=== PATIENT | male | born 1980 | race Hispanic/Latino ===

== ENCOUNTER 2017-12-17 10:07 | Inpatient (IN) | payer OTHER ==
[~2017-12-17] VITALS: Ht 195.6 cm; Wt 145.1 kg
[2017-12-17] MEDS ORDERED: SODIUM CHLORIDE 0.9% 1000ML 1,000 ML IV STA (10:15)
[2017-12-17] MEDS ORDERED: PIPER-TAZ 3.375 GM 50 ML IV STA (10:15)
[2017-12-17] MEDS ORDERED: MORPHINE SULFATE INJ 4 MG/ML INJ IV STA (10:15)
[2017-12-17] MEDS ORDERED: VANCOMYCIN 1GM/NS 250 ML 250 ML IV STA (10:15)
[2017-12-17 10:56] LABS: BASOPHILS % 0.2 % (0.0-1.0); EOSINOPHILS # (AUTO) 0.2 (0.0-0.4); EOSINOPHILS % 1.5 % (0.0-6.0); HEMATOCRIT 41.5 % (38.2-49.6); HEMOGLOBIN 14.7 g/dL (14.0-18.0); LYMPHOCYTES # (AUTO) 2.4 (1.0-3.2); LYMPHOCYTES % 18.6 % (18.0-39.1); MEAN CORPUSCULAR HEMOGLOBIN 28.2 pg (28-32); MEAN CORPUSCULAR HGB CONC 35.4 g/dL (31-35); MEAN CORPUSCULAR VOLUME 79.7 fL (81-99); MONOCYTES % 7.5 % (4.4-11.3); NEUTROPHILS # (AUTO) 9.3 (2.1-6.9); NEUTROPHILS % 71.7 % (38.7-80.0); PLATELET COUNT 368 x10e3/uL (140-360); RED BLOOD COUNT 5.21 x10e6/uL (4.3-5.7); RED CELL DISTRIBUTION WIDTH 11.7 % (11.7-14.4)
[2017-12-17 10:59] LABS: INR 1.07; PROTHROMBIN TIME 13.1 seconds (11.9-14.5)
[2017-12-17 11:00] LABS: PARTIAL THROMBOPLASTIN TIME 38.6 seconds (23.8-35.5)
[2017-12-17 11:08] LABS: ALANINE AMINOTRANSFERASE 28 IU/L (0-55); ALBUMIN 3.3 g/dL (3.5-5.0); ALBUMIN/GLOBULIN RATIO 0.7 (0.8-2.0); ALKALINE PHOSPHATASE 183 IU/L (40-150); ANION GAP 19.7 mmol/L (8-16); BLOOD UREA NITROGEN 11 mg/dL (7-26); BUN/CREATININE RATIO 9 (6-25); CARBON DIOXIDE 23 mmol/L (22-29); CHLORIDE 97 mmol/L (98-107); CREATININE, SERUM 1.21 mg/dL (0.72-1.25); EST GLOMERULAR FILTRATION RATE > 60 ML/MIN (60-); GLUCOSE 382 mg/dL (74-118); POTASSIUM 3.7 mmol/L (3.5-5.1); SODIUM 136 mmol/L (136-145)
--- NOTE | 2017-12-17 11:24 | Diagnostic Imaging Report ---
FOOT LEFT COMPLETE - 3 views HISTORY: Pain COMPARISON: None available. FINDINGS: See impression. IMPRESSION: Nondisplaced intra-articular fracture of the tip of the proximal phalanx of the fifth toe with associated soft tissue swelling. Signed by: Dr. Bart Mccarthy MD on 12/17/2017 11:20 AM
[2017-12-17] MEDS ORDERED: INSULIN REGULAR, HUMAN 100 UNIT/1 ML 3ML VIAL SQ ONE (11:30)
[2017-12-17] MEDS ORDERED: ONDANSETRON HCL INJ 2 MG/ML VIAL IV PRN (11:45)
[2017-12-17] MEDS ORDERED: MORPHINE SULFATE 2 MG/ML SYR IV PRN (11:45)
[2017-12-17] MEDS ORDERED: DEXTROSE 50% SYRINGE 50 ML IV PRN (11:45)
[2017-12-17] MEDS ORDERED: PIPER-TAZ 3.375 GM 50 ML IV SCH (12:00)
[2017-12-17] MEDS ORDERED: ACETAMINOPHEN 325 MG TAB PO PRN (12:30)
[2017-12-17 13:18] VITALS: BP 157/81
[2017-12-17] MEDS: VANCOMYCIN 1GM/NS 250 ML 250 ML IV SCH (13:31)
[2017-12-17] MEDS: SODIUM CHLORIDE 0.9% 1000ML 1,000 ML IV SCH ×2 (13:31→20:30)
[2017-12-17 13:36] VITALS: BP 157/81
[2017-12-17] MEDS: HEPARIN SOD (PORCINE) 5,000 UNIT/ML VIAL SC SCH ×2 (13:45→20:38)
[2017-12-17 15:58] VITALS: BP 173/98
[2017-12-17] MEDS ORDERED: INSULIN REGULAR, HUMAN 100 UNIT/1 ML 3ML VIAL SQ SCH (16:30)
--- NOTE | 2017-12-17 17:19 | History and Physical ---
The patient was admitted through the emergency room. An unfortunate 37-year-old gentleman with a history of poorly fitting shoes, history of injury to the foot on December 06, 2017, on a bag of pesticide fell approximately 2 feet from a tom on to his foot. There has been swelling over the last 5 days. SURGERIES: Cyst on his back. FAMILY HISTORY: Positive for diabetes. He was born in [place]. He has been on a low carbohydrate diet. ALLERGIES: BEE STINGS AND POLLEN. MEDICATIONS: Takes no regular medications. PHYSICAL EXAMINATION GENERAL: A burly white male anxious and in no acute distress. HEENT: Head is normocephalic and atraumatic. Eyes: Extraocular muscles intact. LUNGS: Clear. HEART: Regular rhythm. ABDOMEN: Nontender. EXTREMITIES: There is tenderness at the ball of the left foot. Cellulitis and area of laceration of the foot. IMPRESSION 1. Probable osteomyelitis of the small 5th toe of the left foot. 2. Diabetes mellitus. 3. Cellulitis. PLAN: IV antibiotics. Control diabetes. Surgical opinion. Venous and arterial Doppler. Empiric antibiotics to cover gram-negative and gram-positive anaerobic organisms. Thank you for this kind referral. Job#: [id number] TALAT
[2017-12-17] MEDS ORDERED: CLONIDINE HCL 0.1 MG TAB PO PRN (17:30)
[2017-12-17] MEDS: PIPER-TAZ 3.375 GM 50 ML IV SCH (17:55)
[2017-12-17 20:00] VITALS: BP 169/89
[2017-12-17 20:09] VITALS: BP 161/90
[2017-12-17] MEDS: INSULIN LISPRO 100 UNIT/1 ML 3ML VIAL SQ SCH (20:38)
[2017-12-17] MEDS: INSULIN DETEMIR 100 UNIT/ML PEN SQ SCH (20:39)
--- NOTE | 2017-12-17 20:41 | Consultation ---
DATE OF CONSULTATION: REASON FOR CONSULTATION: This patient has osteomyelitis of the foot, infection of the foot. HISTORY OF PRESENT ILLNESS: This is a very pleasant 37-year-old male. Denies any past medical history. He does have obesity. The patient a week ago or 9 days ago a bag of fertilizer fell to his left foot. He does have some pain, did not make much of it. He continued to work. The patient started to have redness and swelling yesterday, came to emergency room where he was admitted. The patient who is currently laying in bed comfortably, but he said he cannot put any weight on it. Also, with this admission, he was diagnosed with diabetes, which she was not aware of, but he does say there is diabetes in the family. PAST MEDICAL HISTORY: Obesity, now newly diagnosed diabetes. PAST SURGICAL HISTORY: Denies. ALLERGIES: NKA. SOCIAL HISTORY: There is no smoking, drug abuse, alcohol abuse. FAMILY HISTORY: Unremarkable. LAB: White count 13.01, hemoglobin 14.7. His sodium 136, potassium 3.7, creatinine 1.2. AST, ALT within normal limits. Alkaline phosphatase 183. His x-ray of the foot showing nondisplaced intra-articular fracture of the tip of the proximal phalanx of the 5th toe. PHYSICAL EXAMINATION GENERAL: He is currently alert, oriented, does not seem to be in acute distress. VITALS: Stable, currently afebrile. HEENT: Not icteric. Normocephalic. NECK: Supple. No JVD, no carotid bruit, no thyromegaly. CHEST: Clear bilaterally. HEART: S1, S2. No thrills, murmur. ABDOMEN: Soft. No tenderness. Obese. EXTREMITIES: No edema. The left foot there is significant erythema and edema and some ecchymosis. The erythema involving the whole foot. IMPRESSIONS 1. Cellulitis of the foot. Since there is a fractured bone, I am really concerned that it has spread to the bone. So we have to treat as if he has osteomyelitis. Will plan on initial 2 weeks, but we may extend it to 6 weeks. Will get a peripherally inserted central catheter line in him. Will continue with vancomycin and Zosyn for the time being. Discussed with surgery. Will observe for the next day or 2. I have warned the patient he may end up losing his toe. 2. Diabetes, new diagnosis. Will need to stress control. Diet, exercise, and treatment were deferred to Dr. Robbins. 3. May need a magnetic resonance imaging. Will see in the next 24 or 48 hours with bedrest and IV antibiotic. I may get an MRI depending in his clinical progress. Job#: [id number] CQ
--- NOTE | 2017-12-17 21:30 | Consultation ---
DATE OF CONSULTATION: December 17, 2017 CHIEF COMPLAINT: Left toe infection. HISTORY OF PRESENT ILLNESS: The patient is a 37-year-old male with 10-day history of left fifth toe swelling, redness, and tenderness. Patient stated he started with a left fifth toe while walking which had been progressively enlarged and swollen with more redness and pain with some subjective fevers. PAST MEDICAL HISTORY: Positive for new-onset diabetes. PAST SURGICAL HISTORY: Unremarkable. ALLERGIES: HE HAS NO KNOWN DRUG ALLERGIES. SOCIAL HABITS: Denies smoking or alcohol abuse. REVIEW OF SYSTEMS: Negative except for current HPI. PHYSICAL EXAMINATION: VITAL SIGNS: Stable, afebrile. GENERAL: He is awake, alert, in mild discomfort. HEENT: Sclerae anicteric. NECK: Supple. LUNGS: Clear. HEART: Regular rate and rhythm. ABDOMEN: Soft, nontender. EXTREMITIES: Revealed the left fifth toe which is edematous and erythematous with the process extending to the lateral aspect to the left lateral foot and dorsum of the foot. There is evidence of skin breakage on the web site of the fifth toe. Pedal pulse is bounding. LABORATORY DATA: White cell count is 13, hemoglobin of 15. Creatinine of 1.2. Glucose 382. X-ray showed transverse fracture of the proximal phalanx of left fifth toe. ASSESSMENT: Left fifth toe soft tissue infection with underlying open fracture of the proximal phalanx. PLAN: IV antibiotics and left leg elevation. Will follow patient with you. Thank you. Job#: [id number]
--- NOTE | 2017-12-17 21:40 | Consultation ---
DATE OF CONSULTATION: December 17, 2017 ENDOCRINE CONSULTATION Patient of Dr. Robbins. Thank you very much for referring this patient. HISTORY: This is 37-year-old gentleman who is referred to me for evaluation of new-onset diabetes mellitus. Patient says that he had a checkup about 3 to 4 years back and he was not a diabetic at this time. This time he comes to the hospital with cellulitis of the left foot, and his blood sugar was found to be 350 and his hemoglobin A1c is significantly elevated at 13.0. On direct questioning, he does complain of polyuria, polydipsia, and leg cramps. His anion gap at the time of admission was 19.7. Patient says that he stepped on something and developed cellulitis of the left foot for the last week and a half, and he dropped something on his foot. Patient has very strong family history of diabetes. PHYSICAL EXAMINATION: GENERAL: Today, the patient is alert, awake, little bit apprehensive. He is moderately overweight. VITAL SIGNS: His heart rate is around 78, blood pressure 140/80 mmHg. HEENT: Essentially unremarkable. Thyroid is palpable. Clinically, he is near euthyroid. CHEST: Bilateral vesicular breathing. No rales heard. CARDIAC: Both 1st and 2nd heart sounds. There is no 3rd or 4th heart sound. Ejection systolic murmur, grade 2/6. EXTREMITIES: Patient has evidence of diabetic sensory neuropathy in both lower extremities. He has cellulitis of the left foot and also fracture of the left fifth toe. PLAN: At this time is to monitor his thyroid function test, do a blood sugar monitoring, and start him on the Levemir and the Humalog insulin. Patient needs extensive diabetic and dietary education and the foot care. Thanks for referring this patient. I will be following this patient with you. Job#: [id number]
[2017-12-17] MEDS: LOSARTAN POTASSIUM 25 MG TAB PO SCH (21:55)
[2017-12-18] VITALS: BP 159/85
[2017-12-18] MEDS: PIPER-TAZ 3.375 GM 50 ML IV SCH ×4 (00:25→18:00)
[2017-12-18] MEDS: VANCOMYCIN 1GM/NS 250 ML 250 ML IV SCH ×2 (01:00→12:58)
[2017-12-18 04:00] VITALS: BP 161/96
[2017-12-18 06:55] LABS: CHOL/HDL RATIO 4.4 (3.9-4.7)
[2017-12-18 07:16] LABS: FREE T4 (FREE THYROXINE) 1.23 ng/dL (0.9-1.8); THYROID STIMULATING HORMONE 2.784 uIU/mL (0.350-4.940)
[2017-12-18 07:41] VITALS: BP 154/90
[2017-12-18 08:55] VITALS: BP 154/90
[2017-12-18] MEDS: INSULIN LISPRO 100 UNIT/1 ML 3ML VIAL SQ SCH ×7 (08:55→21:00)
[2017-12-18] MEDS: CHLORTHALIDONE 25 MG TAB PO SCH (08:55)
[2017-12-18] MEDS: HEPARIN SOD (PORCINE) 5,000 UNIT/ML VIAL SC SCH ×2 (08:55→21:00)
[2017-12-18] MEDS: LOSARTAN POTASSIUM 25 MG TAB PO SCH ×2 (08:55→21:00)
[2017-12-18] MEDS ORDERED: MORPHINE SULFATE INJ 4 MG/ML INJ IV PRN (13:15)
[2017-12-18 16:37] VITALS: BP 149/85
[2017-12-18] MEDS ORDERED: VANCOMYCIN HCL 1.5 GM in SODIUM CHLORIDE 0.9% 250ML 300 ML IV SCH ×2 (17:00→21:00)
[2017-12-18] MEDS: SODIUM CHLORIDE 0.9% 1000ML 1,000 ML IV SCH (18:09)
[2017-12-18] MEDS: VANCOMYCIN HCL 1.5 GM in SODIUM CHLORIDE 0.9% 250ML 300 ML IV SCH (18:48)
[2017-12-18 20:00] VITALS: BP 142/85
[2017-12-18] MEDS: INSULIN DETEMIR 100 UNIT/ML PEN SQ SCH (21:00)
[2017-12-19] VITALS (7 sets, daily range): BP systolic 130–151; BP diastolic 78–92
[2017-12-19] MEDS: SODIUM CHLORIDE 0.9% 1000ML 1,000 ML IV SCH ×3 (02:30→22:30)
[2017-12-19] MEDS: PIPER-TAZ 3.375 GM 50 ML IV SCH ×2 (05:33)
[2017-12-19 05:57] LABS: BASOPHILS # (AUTO) 0.1 (0.0-0.1); BASOPHILS % 0.4 % (0.0-1.0); EOSINOPHILS # (AUTO) 0.3 (0.0-0.4); EOSINOPHILS % 2.1 % (0.0-6.0); HEMATOCRIT 37.8 % (38.2-49.6); LYMPHOCYTES # (AUTO) 2.4 (1.0-3.2); LYMPHOCYTES % 18.1 % (18.0-39.1); MEAN CORPUSCULAR HEMOGLOBIN 27.8 pg (28-32); MEAN CORPUSCULAR HGB CONC 34.4 g/dL (31-35); MEAN CORPUSCULAR VOLUME 80.8 fL (81-99); MONOCYTES # (AUTO) 1.2 (0.2-0.8); MONOCYTES % 8.8 % (4.4-11.3); NEUTROPHILS # (AUTO) 9.2 (2.1-6.9); NEUTROPHILS % 70.1 % (38.7-80.0); PLATELET COUNT 351 x10e3/uL (140-360); RED BLOOD COUNT 4.68 x10e6/uL (4.3-5.7); RED CELL DISTRIBUTION WIDTH 11.6 % (11.7-14.4)
[2017-12-19] MEDS: VANCOMYCIN HCL 1.5 GM in SODIUM CHLORIDE 0.9% 250ML 300 ML IV SCH (06:00)
[2017-12-19 06:50] LABS: BLOOD UREA NITROGEN 9 mg/dL (7-26); BUN/CREATININE RATIO 11 (6-25); CALCIUM 9.7 mg/dL (8.4-10.2); CARBON DIOXIDE 26 mmol/L (22-29); CHLORIDE 100 mmol/L (98-107); CREATININE, SERUM 0.85 mg/dL (0.72-1.25); EST GLOMERULAR FILTRATION RATE > 60 ML/MIN (60-); GLUCOSE 113 mg/dL (74-118); SODIUM 137 mmol/L (136-145)
[2017-12-19] MEDS: INSULIN LISPRO 100 UNIT/1 ML 3ML VIAL SQ SCH ×7 (07:30→21:00)
[2017-12-19] MEDS: LOSARTAN POTASSIUM 25 MG TAB PO SCH ×2 (08:57→21:00)
[2017-12-19] MEDS: CHLORTHALIDONE 25 MG TAB PO SCH (08:57)
[2017-12-19] MEDS: HEPARIN SOD (PORCINE) 5,000 UNIT/ML VIAL SC SCH ×2 (08:57→21:00)
[2017-12-19] MEDS: CEFTRIAXONE SOD 1 GM VIAL IV SCH (11:26)
[2017-12-19] MEDS: INSULIN DETEMIR 100 UNIT/ML PEN SQ SCH (21:00)
[2017-12-20] VITALS: BP 117/74
[2017-12-20 04:00] VITALS: BP 134/83
[2017-12-20] MEDS: INSULIN LISPRO 100 UNIT/1 ML 3ML VIAL SQ SCH ×4 (07:30→12:25)
[2017-12-20 08:11] VITALS: BP 123/80
[2017-12-20] MEDS: SODIUM CHLORIDE 0.9% 1000ML 1,000 ML IV SCH (08:30)
[2017-12-20] MEDS: LOSARTAN POTASSIUM 25 MG TAB PO SCH (08:39)
[2017-12-20] MEDS: CHLORTHALIDONE 25 MG TAB PO SCH (08:39)
[2017-12-20] MEDS: HEPARIN SOD (PORCINE) 5,000 UNIT/ML VIAL SC SCH (09:15)
[2017-12-20 09:30] VITALS: BP 123/80
[2017-12-20] MEDS ORDERED: CHLORTHALIDONE25 MG PO (09:51)
[2017-12-20] MEDS ORDERED: COZAAR25 MG PO (09:51)
[2017-12-20] MEDS ORDERED: Insulin Detemir SQ (09:51)
[2017-12-20] MEDS ORDERED: CEFTRIAXONE1 GM IV (09:51)
[2017-12-20] MEDS ORDERED: Insulin Lispro SQ ×2 (09:51)
[2017-12-20] MEDS ORDERED: LIPITOR20 MG PO (09:53)
--- NOTE | 2017-12-20 10:59 | Discharge Summary ---
HISTORY AND HOSPITAL COURSE: Patient is an unfortunate 37-year-old gentleman with a history of wearing poorly fitting shoes and having injury to his left foot on December 06 this year, a bag of pesticides fell upon it. He was found to have severe cellulitis of the left foot and osteomyelitis of the small toe of the left foot, newly diagnosed diabetic and hypertensive. Cultures grew Strep agalactiae group B, which was sensitive to Rocephin. He is to be discharged on this medication intravenously, which will be provided by home health and outpatient pharmacy. Patient gradually improved. Urine microalbumin was positive. He will require nephrology opinion as an outpatient. He was started on losartan and chlorthalidone. Hemoglobin was 13 at the time of discharge. LDL cholesterol was 105 and HDL 46. Improved and is to be discharged, to be followed as an outpatient by Dr. Brown, Dr. Childress, and Dr. Bryan. DISCHARGE MEDICATIONS: He is discharged on; 1. Lisinopril. 2. Insulin 18 units before meals. 3. Chlorthalidone 25 mg. 4. Losartan 25 mg b.i.d. 5. Levemir insulin 33 units at night. 6. Rocephin 2 grams daily. 7. Lipitor 20 mg at night. DIET: Diabetic diet. THOMAS PIEDRA MD Job#: [id number] MIRIAN
[2017-12-20] MEDS: CEFTRIAXONE SOD 1 GM VIAL IV SCH (11:35)
[2017-12-20 11:56] VITALS: BP 126/80
[2017-12-20 16:25] VITALS: BP 120/75
[2017-12-20] MEDS ORDERED: ATORVASTATIN 20 MG TAB PO SCH (21:00)
== END 2017-12-20 16:31 | disposition home health service (06) | DRG 638 ==
LOC: ER 10:07 → ERHOLD 12:08 → MED/SURG 12:55
PROVIDERS: ADMIT Internal Medicine Pulmonary Disease; ATTEND Internal Medicine Pulmonary Disease
PROC: 02HV33Z Insertion of Infusion Device into Superior Vena Cava, Percutaneous Approach (ICD-10-PCS; principal; 2017-12-18)
DX: E11.69 Type 2 diabetes mellitus with other specified complication (principal); L03.116 Cellulitis of left lower limb; M86.8X7 Other osteomyelitis, ankle and foot; S92.515B Nondisplaced fracture of proximal phalanx of left lesser toe(s), initial encounter for open fracture; E11.65 Type 2 diabetes mellitus with hyperglycemia; E66.9 Obesity, unspecified; Z83.3 Family history of diabetes mellitus; E11.42 Type 2 diabetes mellitus with diabetic polyneuropathy; Z68.37 Body mass index [BMI] 37.0-37.9, adult; B95.1 Streptococcus, group B, as the cause of diseases classified elsewhere
CPT/HCPCS: 36415; 80048; 80053; 80061; 80202; 82044; 82948; 83036; 83605; 84439; 84443; 85025; 85610; 85730; 87040; 87071; 87186; 87205; 99284; J0696; J1644; J2270; J2543; J3370; J7030; J7050

== ENCOUNTER 2018-01-18 07:19 | Emergency (ER) | payer OTHER ==
[~2018-01-18] VITALS: Ht 195.6 cm; Wt 145.1 kg
[~2018-01-18 07:19] MED LIST: CEFTRIAXONE1 GM IV; CHLORTHALIDONE25 MG PO; COZAAR25 MG PO; Insulin Detemir SQ; Insulin Lispro SQ; LIPITOR20 MG PO
[2018-01-18 08:35] LABS: BLOOD UREA NITROGEN 25 mg/dL (7-26); BUN/CREATININE RATIO 22 (6-25); CREATININE, SERUM 1.15 mg/dL (0.72-1.25); EST GLOMERULAR FILTRATION RATE > 60 ML/MIN (60-)
[2018-01-18 10:46] VITALS: BP 126/74
== END 2018-01-18 10:45 | disposition home or self-care (01) ==
LOC: ER 07:19
DX: Z48.01 Encounter for change or removal of surgical wound dressing (principal); E11.9 Type 2 diabetes mellitus without complications
CPT/HCPCS: 36415; 82565; 84520; 99283

== ENCOUNTER 2019-03-18 10:15 | Inpatient (IN) | payer OTHER ==
[~2019-03-18] VITALS: Ht 195.6 cm; Wt 157.5 kg
[2019-03-18] MEDS ORDERED: MORPHINE SULFATE INJ 4 MG/ML INJ 1ML IV STA (10:32)
[2019-03-18] MEDS ORDERED: SODIUM CHLORIDE 0.9% 1000ML 1,000 ML IV STA ×2 (10:32)
[2019-03-18] MEDS ORDERED: ONDANSETRON HCL INJ 2MG/ML 2ML 2 MG/ML VIAL IV STA (10:32)
[2019-03-18] MEDS ORDERED: VANCOMYCIN 1GM/NS 250 ML 250 ML IV SCH (10:45)
[2019-03-18] MEDS ORDERED: DEXTROSE 50% SYRINGE 50 ML IV PRN (10:45)
[2019-03-18] MEDS ORDERED: MORPHINE SULFATE 2 MG/ML SYR 1ML IV PRN (10:45)
[2019-03-18] MEDS ORDERED: TETANUS/DIPHTHERIA TOX ADULT 0.5 ML SYR IM ONE (10:45)
[2019-03-18] MEDS: SODIUM CHLORIDE 0.9% 1000ML 1,000 ML IV SCH (10:48)
[2019-03-18] MEDS ORDERED: PIPER-TAZ 3.375 GM 50 ML IV ONE (11:00)
--- NOTE | 2019-03-18 11:13 | Diagnostic Imaging Report ---
Chest, 2 views, 03/18/2019. History: Foot infection. Comparison: None available. Findings: The cardiomediastinal silhouette and pulmonary vasculature are within normal limits. The lungs are clear without evidence of consolidation or pleural effusion. There are no acute osseous or soft tissue abnormalities. Impression: No acute cardiopulmonary abnormality. Signed by: Nash Villatoro on 03/18/2019 11:10 AM
--- NOTE | 2019-03-18 11:21 | Diagnostic Imaging Report ---
Left foot, 3 views. History: Foot infection, bottom of left first digit. Comparison: 12/17/2017. Findings: Air is present within the plantar soft tissues between the first and second digits. Adjacent bones are normal in appearance. There is chronic appearing deformity of the head of the fifth metatarsal and adjacent fifth middle and proximal phalanges. There is no evidence of acute fracture or dislocation. No visible erosions or periosteal reaction. The joint spaces are within normal limits. Posterior and plantar calcaneal spurs are present. IMPRESSION: 1. Subcutaneous emphysema between the first and second digits without visible osseous abnormality. A nuclear medicine bone scan would be more sensitive for detection of early osteomyelitis. 2. Old posttraumatic deformity of the left fifth digit. Signed by: Nash Villatoro on 03/18/2019 11:18 AM
[2019-03-18] MEDS ORDERED: VANCOMYCIN 1GM/NS 250 ML 250 ML IV ONE (11:30)
[2019-03-18 11:35] LABS: BASOPHILS % 0.1 % (0.0-1.0); EOSINOPHILS # (AUTO) 0.1 (0.0-0.4); EOSINOPHILS % 0.5 % (0.0-6.0); HEMATOCRIT 41.6 % (38.2-49.6); LYMPHOCYTES # (AUTO) 1.4 (1.0-3.2); LYMPHOCYTES % 7.2 % (18.0-39.1); MEAN CORPUSCULAR HEMOGLOBIN 27.8 pg (28-32); MEAN CORPUSCULAR HGB CONC 33.7 g/dL (31-35); MEAN CORPUSCULAR VOLUME 82.7 fL (81-99); MONOCYTES # (AUTO) 1.8 (0.2-0.8); MONOCYTES % 8.8 % (4.4-11.3); NEUTROPHILS # (AUTO) 16.6 (2.1-6.9); NEUTROPHILS % 82.8 % (38.7-80.0); PLATELET COUNT 337 x10e3/uL (140-360); RED BLOOD COUNT 5.03 x10e6/uL (4.3-5.7); RED CELL DISTRIBUTION WIDTH 12.4 % (11.7-14.4)
[2019-03-18 11:50] LABS: INR 1.12; PROTHROMBIN TIME 14.9 seconds (11.9-14.5)
[2019-03-18 11:51] LABS: PARTIAL THROMBOPLASTIN TIME 45.1 seconds (23.8-35.5)
[2019-03-18 11:59] LABS: ALANINE AMINOTRANSFERASE 47 IU/L (0-55); ALBUMIN/GLOBULIN RATIO 0.6 (0.8-2.0); ALKALINE PHOSPHATASE 193 IU/L (40-150); BLOOD UREA NITROGEN 13 mg/dL (7-26); BUN/CREATININE RATIO 12 (6-25); CALCIUM 9.6 mg/dL (8.4-10.2); CARBON DIOXIDE 24 mmol/L (22-29); CHLORIDE 100 mmol/L (98-107); CREATINE KINASE 66 IU/L (30-200); CREATININE, SERUM 1.08 mg/dL (0.72-1.25); EST GLOMERULAR FILTRATION RATE > 60 ML/MIN (60-); GLUCOSE 174 mg/dL (74-118); MAGNESIUM 1.6 MG/DL (1.3-2.1); SODIUM 136 mmol/L (136-145)
[2019-03-18 12:01] LABS: LIPASE < 4 U/L (8-78)
[2019-03-18 12:16] LABS: LYMPHOCYTES % (MANUAL) 6 % (19-48); MONOCYTES % (MANUAL) 10 % (3.4-9.0); NEUTROPHILS % (MANUAL) 83 % (40-74)
[2019-03-18 12:17] LABS: PLATELET ESTIMATE ADEQUATE; PLATELET MORPHOLOGY COMMENT FEW LARGE
[2019-03-18 12:18] LABS: RBC MORPHOLOGY COMMENT NORMAL
[2019-03-18] MEDS: INSULIN REGULAR, HUMAN 100 UNIT/1 ML 3ML VIAL SQ SCH ×3 (12:25→21:31)
[2019-03-18] MEDS: VANCOMYCIN 1GM/NS 250 ML 250 ML IV SCH ×2 (12:26→21:31)
[2019-03-18 15:45] VITALS: BP_SYST 116; BP_SYST 138; BP_DIAS 94
--- NOTE | 2019-03-18 15:45 | NUR ---
RECEIVED PATIENT FROM ER TO ROOM 286, HE IS IN STABLE CONDITION. ADMISSION HISTORY AND INITIAL PHYSICAL ASSESSMENT COMPLETED AND DOCUMENTED. PATIENT ORIENTED TO ROOM AND POLICIES. CALL LIGHT WITHIN REACH .BED IN THE LOWEST POSITION.
[2019-03-18 16:02] VITALS: BP 138/94
[2019-03-18] MEDS ORDERED: HUMALOG100 UNIT/3 SQ (16:08)
[2019-03-18] MEDS ORDERED: LEVEMIR100 UNIT/1 SQ (16:08)
[2019-03-18 16:35] LABS: BILIRUBIN,URINE NEGATIVE (NEGATIVE); CLARITY,URINE SL CLOUDY (CLEAR); COLOR,URINE YELLOW (YELLOW); KETONES,URINE 1+ (NEGATIVE); LEUKOCYTE ESTERASE ,URINE NEGATIVE (NEGATIVE); NITRITE,URINE NEGATIVE (NEGATIVE); PROTEIN,URINE DIPSTICK 2+ (NEGATIVE); URINE UROBILINOGEN 2 mg/dL (0.2 - 1)
[2019-03-18] MEDS: PIPER-TAZ 3.375 GM 50 ML IV SCH (17:00)
[2019-03-18 17:01] LABS: BACTERIA,URINE FEW /HPF; RBC,URINE 0-5 /HPF (0-5)
--- NOTE | 2019-03-18 19:11 | NUR ---
Received bedside report from day nurse. Patient sitting up in bed, alert and oriented, no s/s of distress or c/o pain at this time. All safety measures in place. Family at bedside. Will continue to monitor.
--- NOTE | 2019-03-18 19:11 | NUR ---
BEDSIDE SHIFT REPORT GIVEN TO ONCOMING NURSE. PATIENT IS RESTING IN BED. NO ACUTE DISTRESS NOTED. CALL LIGHT WITHIN REACH. BED IN THE LOWEST POSITION.
[2019-03-18 20:00] VITALS: BP 156/87
[2019-03-18] MEDS: ONDANSETRON HCL INJ 2MG/ML 2ML 2 MG/ML VIAL IV PRN (20:10)
[2019-03-18] MEDS: MORPHINE SULFATE INJ 4 MG/ML INJ 1ML IV PRN (20:10)
[2019-03-18 22:48] VITALS: BP 156/87
[2019-03-19] VITALS (8 sets, daily range): BP systolic 124–150; BP diastolic 72–87
[2019-03-19] MEDS: PIPER-TAZ 3.375 GM 50 ML IV SCH ×4 (00:36→17:44)
[2019-03-19] MEDS: SODIUM CHLORIDE 0.9% 1000ML 1,000 ML IV SCH ×3 (00:36→11:47)
--- NOTE | 2019-03-19 01:21 | History and Physical ---
CHIEF COMPLAINT: Diabetic foot ulcer. HISTORY OF PRESENT ILLNESS: 38-year-old male patient with longstanding history of diabetes mellitus and a history of a diabetic foot ulcer involving 5th toe, 2 years back which was treated. He developed a blister to the left plantar foot 2 weeks back, the patient ignored it and he was trying to come to the office on Monday. However, he says he did not get appointment and the wound was getting bigger and came to the emergency room. He has a foul odor abscess in the left foot. The patient admitted. Examination reveals left plantar foot. The patient has a blister with a necrotic area of purulent drainage, foul odor and diabetic foot ulcer, Ramirez grade 4. PAST MEDICAL HISTORY: Diabetes mellitus, obesity, diabetic neuropathy, hypertension, and hyperlipidemia. MEDICATIONS: Losartan 25 mg q.12, atorvastatin 20 mg daily, Levemir 33 units at night and chlorthalidone 25 mg daily and regular insulin 18 units with each meal. SOCIAL HISTORY: No history of smoking or alcohol. PHYSICAL EXAMINATION: VITAL SIGNS: Blood pressure 165/91, pulse of 130, temperature 99, weight 320 pounds, height of 6 feet 5 inches. HEENT: Normal. NECK: No JVD. LUNGS: Bilaterally normal. CVS: Normal. ABDOMEN: Soft. Bowel sounds normal. LOWER EXTREMITIES: Left plantar foot. The patient has a diabetic foot ulcer, Ramirez grade 4. ASSESSMENT: 1. Diabetic foot ulcer, Ramirez grade 4. 2. Morbid obesity. 3. Diabetic neuropathy. PLAN: We will consider debridement. The patient is on Zosyn and vancomycin. ID consultation. MRI of the foot. MD ANAIS Constantino/MODL /[id number]
--- NOTE | 2019-03-19 01:36 | Operative Report ---
DATE OF PROCEDURE: SURGEON: Rachelle Childress MD PROCEDURE: Wound debridement. DESCRIPTION OF PROCEDURE: After explaining the procedure, obtaining consent, used a #10 blade pickup, did an excisional debridement of the left plantar diabetic foot ulcer, and removed all the necrotic and nonviable tissue. I went to the muscle layer, removed all the nonviable tissue and part of the viable tissue. There was a moderate bleeding controlled with pressure. Wound was irrigated with normal saline and povidone iodine. Wound packed with iodine moistened 4 x 4, Kerlix and tape. The patient tolerated the procedure. MD ANAIS Constantino/ASHLEYL /[id number]
[2019-03-19] MEDS: ONDANSETRON HCL INJ 2MG/ML 2ML 2 MG/ML VIAL IV PRN ×2 (04:44→11:43)
[2019-03-19] MEDS: MORPHINE SULFATE INJ 4 MG/ML INJ 1ML IV PRN ×2 (04:44→11:43)
[2019-03-19 05:48] LABS: BASOPHILS % 0.3 % (0.0-1.0); EOSINOPHILS # (AUTO) 0.2 (0.0-0.4); EOSINOPHILS % 1.2 % (0.0-6.0); HEMATOCRIT 35.7 % (38.2-49.6); HEMOGLOBIN 11.9 g/dL (14.0-18.0); LYMPHOCYTES # (AUTO) 1.6 (1.0-3.2); LYMPHOCYTES % 10.1 % (18.0-39.1); MEAN CORPUSCULAR HEMOGLOBIN 27.7 pg (28-32); MEAN CORPUSCULAR HGB CONC 33.3 g/dL (31-35); MONOCYTES # (AUTO) 1.6 (0.2-0.8); NEUTROPHILS # (AUTO) 12.1 (2.1-6.9); NEUTROPHILS % 77.4 % (38.7-80.0); PLATELET COUNT 291 x10e3/uL (140-360); RED CELL DISTRIBUTION WIDTH 12.4 % (11.7-14.4)
[2019-03-19 06:11] LABS: ALANINE AMINOTRANSFERASE 34 IU/L (0-55); ALBUMIN 2.4 g/dL (3.5-5.0); ALBUMIN/GLOBULIN RATIO 0.6 (0.8-2.0); ALKALINE PHOSPHATASE 165 IU/L (40-150); ANION GAP 11.7 mmol/L (8-16); BLOOD UREA NITROGEN 10 mg/dL (7-26); BUN/CREATININE RATIO 9 (6-25); CALCIUM 8.7 mg/dL (8.4-10.2); CARBON DIOXIDE 23 mmol/L (22-29); CHLORIDE 103 mmol/L (98-107); CREATININE, SERUM 1.16 mg/dL (0.72-1.25); EST GLOMERULAR FILTRATION RATE > 60 ML/MIN (60-); GLUCOSE 163 mg/dL (74-118); MAGNESIUM 1.6 MG/DL (1.3-2.1); PHOSPHORUS 3.6 MG/DL (2.3-4.7); POTASSIUM 3.7 mmol/L (3.5-5.1); SODIUM 134 mmol/L (136-145)
--- NOTE | 2019-03-19 07:01 | NUR ---
received report from [facility] shift lead RN; walking rounds completed. pt awake, alert, no signs of distress; will continue to monitor.
--- NOTE | 2019-03-19 07:07 | NUR ---
Gave bedside report to day nurse. Patient resting in bed, no s/s of distress at this time. All safety measures in place.
[2019-03-19] MEDS: INSULIN REGULAR, HUMAN 100 UNIT/1 ML 3ML VIAL SQ SCH ×4 (08:18→20:52)
[2019-03-19] MEDS: VANCOMYCIN 1GM/NS 250 ML 250 ML IV SCH ×2 (08:18→22:07)
[2019-03-19] MEDS ORDERED: SODIUM HYPOCHLORITE 0.25% 480 ML SOLN IR ONE (10:45)
--- NOTE | 2019-03-19 11:15 | NUR ---
Dr. Schmidt doing I&D at bedside. pt tolerated well.
[2019-03-19] MEDS ORDERED: GADOBENATE DIMEGLUMINE 1 ML IV ONE (12:01)
--- NOTE | 2019-03-19 12:04 | NUR ---
PICC line inserted; pt tolerated well.
[2019-03-19] MEDS: LOSARTAN POTASSIUM 25 MG TAB PO SCH (13:02)
[2019-03-19] MEDS: INSULIN LISPRO 100 UNIT/1 ML 3ML VIAL SQ SCH ×3 (13:06→22:07)
--- NOTE | 2019-03-19 13:17 | Diagnostic Imaging Report ---
EXAMINATION: CHEST XRAY LINE PLACEMENT INDICATION: Line placement COMPARISON: Chest radiograph of 03/18/2019 FINDINGS: LINES/TUBES:Interval placement of right PICC line, terminating in the superior vena cava. LUNGS:The lungs are well-inflated. No focal consolidation or pulmonary edema. PLEURA:No pleural effusion or pneumothorax. MEDIASTINUM:The cardiomediastinal silhouette appears normal in size and shape. BONES/SOFT TISSUES:No acute osseous injury. ABDOMEN:No free air under the diaphragm. IMPRESSION: Right PICC line terminates in the superior vena cava. Signed by: Delroy Barahona MD on 03/19/2019 1:14 PM
--- NOTE | 2019-03-19 13:23 | NUR ---
PICC tip is in the SVC per radiology report by Dr Barahona. PICC is OK to use
--- NOTE | 2019-03-19 15:30 | NUR ---
Pt out of room and no family at bedside. A card was left at the bedside to indicate a missed visit from a member of the Spiritual [facility] team and to inform the pt and family of the availability of a Pivot End Polisher 24 hours a day/7 days a week. A mental health program manager will follow up as able.
--- NOTE | 2019-03-19 16:26 | NUR ---
pt arrived back on unit after MRI; in stable condition.
--- NOTE | 2019-03-19 16:37 | Diagnostic Imaging Report ---
TECHNIQUE: Magnetic resonance imaging of left foot was performed without and with injected contrast. HISTORY: Pain COMPARISON: None available. DISCUSSION: Soft tissue ulceration with postsurgical packing first web space. No soft tissue abscess. Mild bone marrow edema in the second metatarsal head and proximal phalanx without significant T1 replacement. Remainder of the bone marrow signal is normal. Atrophy of the foot musculature. IMPRESSION: Soft tissue ulceration and debridement of the first web space with possible early osteomyelitis of the second metatarsal head and proximal phalanx. Signed by: Dr. Tima Bishop M.D. on 03/19/2019 4:34 PM
--- NOTE | 2019-03-19 17:03 | NUR ---
[id number] seen and examined events noted
--- NOTE | 2019-03-19 19:07 | NUR ---
Received bedside report from day nurse. Patient sitting up in bed, alert and oriented, no s/s of distress or c/o pain at this time. All safety measures in place. Will continue to monitor.
--- NOTE | 2019-03-19 19:37 | Consultation ---
DATE OF CONSULTATION: 03/19/2019 REASON FOR CONSULTATION: Ulceration with the patient being diabetic. HISTORY OF PRESENT ILLNESS: This is a pleasant 38-year-old male, who was seen at bedside, accompanied by multiple family members, who relates he has had a blister to the plantar aspect of the left foot for more than 6 weeks ago. Started having some fever, chills, and nausea 4 days ago, who presented to the emergency room. The fact he cannot get any appointment to see Dr. Childress. Since he has been in the hospital, he has been feeling a little bit better. Denies any history of fever, chills, nausea, or vomiting at this time. PAST MEDICAL HISTORY: Remarkable for insulin-dependent diabetes. PAST SURGICAL HISTORY: Remarkable for foot debridement of the left and 5th MPJ per Dr. Kay 2 years ago. ALLERGIES: TO BEE POLLEN. SOCIAL HISTORY: Works in a car wash. Denies any smoking or drinking or recreational drug use. FAMILY HISTORY: Remarkable for diabetes. CURRENT MEDICATIONS: Note listed in chart including IV Zosyn and vancomycin. REVIEW OF SYSTEMS: CARDIAC: Denies any palpitations or arrhythmias. RESPIRATORY: Denies any shortness of breath or productive cough. GASTROINTESTINAL: Denies any diarrhea or constipation. GENITOURINARY: Denies hematuria or problems voiding. VITAL SIGNS: Afebrile. Pulse rate 89, respirations 18, blood pressure 140/83, and O2 saturation 98%. PHYSICAL EXAMINATION: Podiatric physical examination reveals the following: VASCULATURE: Pedal pulses of both the DP and PT are palpable. CFT to all toes less than 4 seconds to all digits. NEUROLOGIC: There was a decreased and protective sensation when utilizing Donalds-Dustin 5.07 Monofilament wire. MUSCULOSKELETAL: Reveals muscle mass to be asymmetrical. Muscle swelling noted to the left lower extremity compared to the right with edema and cellulitis of the midfoot area, severe foul smell noted. DERMATOLOGICALLY: With a grade 4 ulceration on bone exposed overlying the 1st metatarsal plantarly and 2nd metatarsal with some necrosis, also cellulitis to the dorsal aspect of the 1st interspace of the left foot. X-rays were negative for any gas in the tissue. LABORATORY DATA: Noted has a white blood cell count dropping from 20.09 to 15.6, hemoglobin 11.9, hematocrit 35.7 with a platelet count of 291. Has a blood glucose of 203. INR of 1.12. ASSESSMENT: Grade 4 ulcer with severe necrosis down to bone. PLAN: We will start Santyl followed by diluted wet-to-dry Dakin's with Betadine solution. The patient will need to be taken to the OR for deep debridement, which may include partial debridement of bone. Will be kept n.p.o. after midnight due to perform a surgery in the morning. The proposed surgery was explained to the patient. The patient understands and family members understand no guarantees or warranties can be given. If not responsive, down the road may need a partial amputation of the foot. YADIEL Steele/ADITHYA /[id number]
[2019-03-19] MEDS ORDERED: ATORVASTATIN 20 MG TAB PO SCH (21:00)
[2019-03-19] MEDS: ATORVASTATIN 40 MG TAB PO SCH (22:07)
[2019-03-19] MEDS: INSULIN GLARGINE 100 UNITS/ML VIAL SQ SCH (22:07)
--- NOTE | 2019-03-19 23:43 | Consultation ---
DATE OF CONSULTATION: REASON FOR CONSULTATION: Osteomyelitis of the left foot. HISTORY OF PRESENT ILLNESS: This patient, who is well known to me from before is a very pleasant 38-year-old [place] male with history of diabetes mellitus, history of neuropathy, history of osteomyelitis before, history of obesity, and hypertension. The patient had a small blister affecting his left foot, the 5th and the 3rd toe. He was trying to take care of it, but it became red and swollen. He called his physician. They gave an appointment for yesterday. However, he was in pain and the redness and swelling as well as rash, he came here. The patient was admitted. He was seen by Dr. Kay, underwent incision and drainage. The patient is currently lying in bed comfortably. PAST MEDICAL HISTORY: Diabetes mellitus, obesity, neuropathy, hypertension, osteomyelitis, and hyperlipidemia. PAST SURGICAL HISTORY: I and D of the abscess of the foot before. ALLERGIES: NKA. SOCIAL HISTORY: There is no smoking, drug abuse, or alcohol abuse. FAMILY HISTORY: Significant for diabetes mellitus. REVIEW OF SYSTEMS: HEENT: Negative. PULMONARY: Negative. CARDIAC: Negative. : Negative. PHYSICAL EXAMINATION: GENERAL: He is currently alert, oriented, does not seem to be in acute distress. VITAL SIGNS: Stable, currently afebrile. HEENT: Not icteric. NECK: Supple. CHEST: Clear. ABDOMEN: Soft. Bowel sounds present. No tenderness. EXTREMITIES: No edema. IMPRESSION: Osteomyelitis of the foot. I would recommend Podiatry consultation. Vascular workup if not done recently. MRI of the foot, which is ordered with contrast. Agree with vancomycin and Zosyn. Await culture sensitivity. We will modify after PICC line . We will recommend eight weeks of IV antibiotic. Further recommendations to follow. MD DAVI Mills/ADITHYA /[id number]
[2019-03-20] VITALS (8 sets, daily range): BP systolic 142–184; BP diastolic 80–104
[2019-03-20] MEDS: SODIUM CHLORIDE 0.9% 1000ML 1,000 ML IV SCH ×4 (00:07→18:36)
[2019-03-20] MEDS: PIPER-TAZ 3.375 GM 50 ML IV SCH ×4 (00:07→16:57)
[2019-03-20 06:08] LABS: BASOPHILS % 0.2 % (0.0-1.0); EOSINOPHILS # (AUTO) 0.2 (0.0-0.4); EOSINOPHILS % 1.5 % (0.0-6.0); HEMATOCRIT 33.9 % (38.2-49.6); HEMOGLOBIN 11.4 g/dL (14.0-18.0); LYMPHOCYTES # (AUTO) 1.4 (1.0-3.2); LYMPHOCYTES % 12.1 % (18.0-39.1); MEAN CORPUSCULAR HEMOGLOBIN 27.9 pg (28-32); MEAN CORPUSCULAR HGB CONC 33.6 g/dL (31-35); MEAN CORPUSCULAR VOLUME 83.1 fL (81-99); MONOCYTES % 8.7 % (4.4-11.3); NEUTROPHILS # (AUTO) 8.8 (2.1-6.9); NEUTROPHILS % 77.1 % (38.7-80.0); PLATELET COUNT 302 x10e3/uL (140-360); RED BLOOD COUNT 4.08 x10e6/uL (4.3-5.7); RED CELL DISTRIBUTION WIDTH 12.3 % (11.7-14.4)
--- NOTE | 2019-03-20 06:45 | NUR ---
Patient currently leaving unit for procedure via stretcher. In stable condition, no s/s of distress or c/o pain at this time. All safety measures in place.
[2019-03-20] MEDS ORDERED: BUPIVACAINE HCL 0.5% INJ 30 ML VIAL INJ ONE (07:09)
[2019-03-20] MEDS ORDERED: BACITRACIN 50,000 UNIT VIAL ONE ×2 (07:09→07:22)
[2019-03-20] MEDS ORDERED: LIDOCAINE HCL 1% LOCAL INJ 20 ML VIAL ONE (07:09)
[2019-03-20] MEDS ORDERED: DEXAMETHASONE SOD PHOS INJ 4 MG/ML VIAL ONE ×2 (07:09→16:03)
--- NOTE | 2019-03-20 07:09 | NUR ---
Gave bedside report to day nurse. Patient currently off unit for procedure.
[2019-03-20] MEDS: INSULIN LISPRO 100 UNIT/1 ML 3ML VIAL SQ SCH ×4 (07:30→21:39)
[2019-03-20] MEDS: INSULIN REGULAR, HUMAN 100 UNIT/1 ML 3ML VIAL SQ SCH ×4 (07:30→21:00)
[2019-03-20] MEDS ORDERED: BETAMETHASONE DISODIUM PHOS 6 MG/ML VIAL ONE (07:33)
--- NOTE | 2019-03-20 08:35 | Operative Report ---
DATE OF PROCEDURE: 03/20/2019 SURGEON: Sancho Marquez DPM PREOPERATIVE DIAGNOSES: 1. Osteomyelitis, left foot. 2. Grade 4 ulceration, left foot. POSTOPERATIVE DIAGNOSIS: Confirmed. OPERATIVE PROCEDURE: Ulceration debridement down and including bone. ANESTHESIA: General. HEMOSTASIS: Pneumatic calf tourniquet at 250 mmHg. PROCEDURE IN DETAIL: The patient was taken into the operating room and placed on the operating table in supine position. Following induction of general anesthesia by anesthesiologist, Webril wraps were placed on the patient's left calf followed by application of left calf tourniquet. The left lower extremity was then prepped and draped in the usual aseptic manner following procedures then performed. Procedure #1: Ulcer debridement down and including bone, left foot. The calf tourniquet was inflated to 250 mmHg. Then, the attention was directed to the plantar aspect of the left foot, where utilizing a sterile 10 blade. The ulceration was debrided through skin, subcutaneous tissue, muscle, tendon, and including bone. The necrotic tissue was sharply excised via the use of a sterile 10 blade until good viable bleeding tissue was achieved. The 2nd metatarsal head and 1st metatarsal heads were exposed and scraped utilizing a sterile 10 blade. At this point, the calf tourniquet was then released and further debridement was performed removing all necrotic tissue, it is a good until some good viable bleeding tissue was achieved. At this point, utilizing pulse lavage, a pulse of 3000 mL of bacitracin, 50,000 units were used to lavage the ulceration site and deep cultures were taken prior to the lavaging with sterile antibiotic solution. Further debridement was then carried down to bone. Sterile dressing was applied with the ulceration packed with quarter-inch iodoform mix with Betadine solution, bacitracin, and saline. The ulcer measured more than 8 to 9 cm in diameter following the debridement with tendon bone exposed. Further debridement may need to be performed. The patient understands that further including possible amputation of foot may need be performed if not responsive to conservative treatment. Sterile dressing was applied approximately 10 mL to 15 mL of 0.5% plain Marcaine and 10 mL of 1% Xylocaine plain were then used to achieve local anesthesia of above-mentioned surgical area. Sterile dressing was applied. The patient is transferred from the OR to recovery room with vital signs stable and neurovascular status intact. No intraoperative complications were encountered. Blood loss from the surgery was less than 20 mL. The patient remained in the hospital getting IV antibiotics and local wound care. YADIEL Steele/ADITHYA /[id number]
--- NOTE | 2019-03-20 08:56 | Diagnostic Imaging Report ---
EXAMINATION: FOOT LEFT AP LAT INDICATION: Postoperative COMPARISON: None FINDINGS: Apparent soft tissue defect along the plantar aspect of the great toe. Gauze material tears fine bony detail. No acute fracture or dislocation. No specific radiographic evidence of osteomyelitis. Small calcaneal spur. Mild Achilles enthesopathy. IMPRESSION: No acute osseous injury. Apparent soft tissue defect at the plantar aspect of the great toe with no specific radiographic evidence of osteomyelitis. Signed by: Delroy Barahona MD on 03/20/2019 8:52 AM
[2019-03-20] MEDS: COLLAGENASE OINTMENT 30 GM TUBE TP SCH ×2 (09:00→17:00)
[2019-03-20] MEDS: LOSARTAN POTASSIUM 25 MG TAB PO SCH (10:38)
[2019-03-20] MEDS: VANCOMYCIN 1GM/NS 250 ML 250 ML IV SCH (10:38)
[2019-03-20] MEDS ORDERED: VANCOMYCIN 1GM/NS 250 ML 250 ML IV SCH (11:45)
[2019-03-20] MEDS ORDERED: FENTANYL CITRATE/PF 100MCG/2 ML INJ ONE (14:21)
[2019-03-20] MEDS ORDERED: MIDAZOLAM HCL 2 MG/2 ML VIAL ONE (14:21)
[2019-03-20] MEDS: ONDANSETRON HCL INJ 2MG/ML 2ML 2 MG/ML VIAL IV PRN (15:22)
[2019-03-20] MEDS: MORPHINE SULFATE INJ 4 MG/ML INJ 1ML IV PRN (15:22)
[2019-03-20] MEDS ORDERED: ONDANSETRON HCL INJ 2MG/ML 2ML 2 MG/ML VIAL ONE (16:03)
[2019-03-20] MEDS ORDERED: PROPOFOL IV EMULSION 10 MG/ML 20 ML VIAL ONE (16:03)
[2019-03-20] MEDS ORDERED: SEVOFLURANE INHAL SOLN 250 ML PEN BTL ONE (16:03)
[2019-03-20] MEDS ORDERED: LIDOCAINE HCL 2% LOCAL INJ 5 ML SDV VIAL INJ ONE (16:03)
[2019-03-20] MEDS ORDERED: ACETAMINOPHEN 1000 MG/100 ML IV ONE (16:03)
--- NOTE | 2019-03-20 16:47 | NUR ---
Received consult for diabetic diet education Nutrition Education Learner(s): pt Time spent: 5 to 10 minutes Barriers: none Cultural/Language Modifications: No cultural/language modifications noted. Readiness: Pt was eager to learn Method: explanation/ discussion, handout Topics: diabetic diet - carbohydrate counting Understanding/Compliance: Pt verbalized understanding Signed: Nae Au RD, LD
--- NOTE | 2019-03-20 19:24 | NUR ---
Received bedside report from day nurse. Patient sitting up in bed, alert and oriented, no s/s of distress at this time. All safety measures in place. Will continue to monitor.
[2019-03-20] MEDS: INSULIN GLARGINE 100 UNITS/ML VIAL SQ SCH (21:39)
[2019-03-20] MEDS: ATORVASTATIN 40 MG TAB PO SCH (21:39)
[2019-03-20] MEDS: VANCOMYCIN 300 ML IV SCH (21:39)
[2019-03-21] VITALS (8 sets, daily range): BP systolic 141–174; BP diastolic 78–105
[2019-03-21] MEDS: MORPHINE SULFATE INJ 4 MG/ML INJ 1ML IV PRN ×2 (00:01→18:49)
[2019-03-21] MEDS: PIPER-TAZ 3.375 GM 50 ML IV SCH ×4 (00:01→17:44)
[2019-03-21] MEDS: ONDANSETRON HCL INJ 2MG/ML 2ML 2 MG/ML VIAL IV PRN (00:01)
[2019-03-21] MEDS: SODIUM CHLORIDE 0.9% 1000ML 1,000 ML IV SCH ×3 (02:36→18:36)
--- NOTE | 2019-03-21 06:13 | NUR ---
PICC line dressing changed. Patient tolerated procedure. Both lumens flushing well.
--- NOTE | 2019-03-21 07:15 | NUR ---
Bedside report given to day nurse. Patient sitting up in bed, alert and oriented, no s/s of distress or c/o pain at this time. All safety measures in place.
[2019-03-21] MEDS: INSULIN REGULAR, HUMAN 100 UNIT/1 ML 3ML VIAL SQ SCH ×4 (07:30→21:00)
--- NOTE | 2019-03-21 07:30 | NUR ---
LEFT FOOT DRESSING IN PLACE. CDI. DRESSING WILL BE REMOVED BY DR ON MONDAY PER DR. MARTINEZ.
[2019-03-21] MEDS: LOSARTAN POTASSIUM 25 MG TAB PO SCH (07:54)
[2019-03-21] MEDS: VANCOMYCIN 300 ML IV SCH ×2 (07:55→22:00)
[2019-03-21] MEDS: COLLAGENASE OINTMENT 30 GM TUBE TP SCH ×2 (07:56→16:17)
--- NOTE | 2019-03-21 08:00 | NUR ---
BEDSIDE SHIFT REPORT RECEIVED FROM THE MARKETING FINANCE SPECIALIST RN. EDUCATED PT ABOUT FALL PRECAUTIONS. PT VERBALIZED UNDERSTANDING. BED IS LOW AND LOCKED. SIDE RAILS X2. PT DENIES NEEDS AT THIS TIME.
--- NOTE | 2019-03-21 08:25 | NUR ---
BLOOD SUGAR 108. OKAY TO ADMINISTER STANDING DOSE INSULIN PER DR. CHEN.
[2019-03-21] MEDS: INSULIN LISPRO 100 UNIT/1 ML 3ML VIAL SQ SCH ×4 (08:30→21:15)
--- NOTE | 2019-03-21 12:06 | Progress Note ---
DATE: 03/21/2019 SUBJECTIVE: The patient is seen at bedside, doing better. Denies any history of fever, chills, nausea, or vomiting. OBJECTIVE: VITAL SIGNS: Afebrile, pulse rate 75, respirations 20, blood pressure 156/89, and O2 saturation 96%. EXTREMITIES: Dressing shows some bloody strike through. CFT to all toes less than 5 seconds to the left lower extremity. LABORATORY DATA: Labs noted. He has a white blood cell count dropping to 11.4, hemoglobin 11.4 with a platelet count of 302. He has a blood glucose of 108. ASSESSMENT: Grade 4 ulceration osteomyelitis with some necrosis noted down to bone. PLAN: We will continue local wound care with Santyl followed by diluted wet-to-dry Betadine mixed with Dakin solution. Continue IV antibiotics. We will continue to manage the patient. The patient will need further intervention, which may even include partial amputation of foot. For now, we will treat conservatively with IV and local wound care. YADIEL Steele/ADITHYA /[id number]
--- NOTE | 2019-03-21 19:00 | NUR ---
BEDSIDE SHIFT REPORT GIVEN TO THE VINEYARD SUPERVISOR RN. PT DENIED FURTHER NEEDS.
[2019-03-21] MEDS: INSULIN GLARGINE 100 UNITS/ML VIAL SQ SCH (21:15)
[2019-03-21] MEDS: ATORVASTATIN 40 MG TAB PO SCH (21:15)
--- NOTE | 2019-03-21 21:15 | NUR ---
PATIENT IS AOX4, NO SIGNS OF DISTRESS NOTED. FAMILY MEMBERS AT BEDSIDE AND PATIENT VOICES NO PAIN AT THIS TIME. WOUND DRESSING IS DRY AND INTACT NO DRAINAGE NOTED. BED IS IN LOWEST POSITION, SIDE RAILS ARE UP, CALL LIGHT WITHIN EASY REACH, WILL CONTINUE TO MONITOR.
[2019-03-22] VITALS (8 sets, daily range): BP systolic 132–179; BP diastolic 81–108
[2019-03-22] MEDS: PIPER-TAZ 3.375 GM 50 ML IV SCH ×4 (00:55→18:51)
[2019-03-22] MEDS: MORPHINE SULFATE INJ 4 MG/ML INJ 1ML IV PRN ×2 (01:19→11:24)
[2019-03-22] MEDS: ONDANSETRON HCL INJ 2MG/ML 2ML 2 MG/ML VIAL IV PRN ×2 (01:19→11:45)
[2019-03-22] MEDS: SODIUM CHLORIDE 0.9% 1000ML 1,000 ML IV SCH ×3 (02:36→18:36)
--- NOTE | 2019-03-22 07:00 | NUR ---
BEDSIDE SHIFT REPORT RECEIVED FROM THE TILE APPLICATOR RN. EDUCATED PT ABOUT FALL PRECAUTIONS. CALL LIGHT WITH IN EASY REACH. INSTRUCTED PT TO USE CALL LIGHT FOR ALL THE NEEDS. PT VERBALIZED UNDERSTANDING. BED IS LOW AND LOCKED. SIDE RAILS X2. PT DENIES NEEDS AT THIS TIME.
[2019-03-22] MEDS: INSULIN REGULAR, HUMAN 100 UNIT/1 ML 3ML VIAL SQ SCH ×4 (07:30→21:00)
[2019-03-22] MEDS: LOSARTAN POTASSIUM 25 MG TAB PO SCH (08:01)
[2019-03-22] MEDS: VANCOMYCIN 300 ML IV SCH ×2 (08:02→22:00)
[2019-03-22] MEDS: COLLAGENASE OINTMENT 30 GM TUBE TP SCH ×2 (08:03→17:00)
[2019-03-22] MEDS: INSULIN LISPRO 100 UNIT/1 ML 3ML VIAL SQ SCH ×4 (08:30→22:00)
[2019-03-22] MEDS ORDERED: CEFTRIAXONE SOD 1 GM/NS 50 ML 50 ML IV ONE (08:57)
--- NOTE | 2019-03-22 10:50 | NUR ---
Visit made by the Spiritual Care Department Pastoral Visitor, Yojana Orona. PV provided pastoral presence, hospitality, and supportive listening. Pastoral Visitor informed pt/family of the scope of Packing Tractor Machine Operator Services and availability. CLINTON PARADA Coil Repair Technician Spiritual Care Department O: [phone] Pager: [phone] ([phone] number calling from)
--- NOTE | 2019-03-22 15:28 | Progress Note ---
DATE: 03/22/2019 SUBJECTIVE: The patient is seen at bedside, doing better. Denies any history of fever, chills, nausea, or vomiting. OBJECTIVE: VITAL SIGNS: Afebrile. Pulse rate 75, respirations 19, blood pressure 179/108, and O2 saturation 99%. LABORATORY DATA: Labs noted. White blood cell count dropping to 11.4. Ulceration to the plantar aspect left foot is down to bone. Some necrosis noted, decreased to minimal foul smell at this point. There is decreased cellulitis. Ulcer is more than 6-7 cm in diameter with bone exposed, tendon exposed. ASSESSMENT: Grade 4 ulcer osteo with cellulitis. PLAN: We will continue IV antibiotics. Continue local wound care, dressing was changed. Santyl was applied followed by 25% Dakin solution. We will continue local wound care. Continue offloading. We will continue to follow. YADIEL Steele/ADITHYA /[id number]
[2019-03-22] MEDS: ENOXAPARIN SOD INJ 40 MG/0.4 ML SYR SC SCH (18:51)
--- NOTE | 2019-03-22 19:00 | NUR ---
BEDSIDE SHIFT REPORT GIVEN TO THE SHINGLES ROOFER HELPER RN. PT DENIED FURTHER NEEDS.
--- NOTE | 2019-03-22 21:20 | NUR ---
PATIENT IS AOX4, NO SIGNS OF DISTRESS NOTED. PATIENT VOICES NO PAIN AT THIS TIME AND IV FLUIDS ARE RUNNING AT ORDERED RATE. WOUND DRESSING IS DRY AND INTACT NO DRAINAGE NOTED. BED IS IN LOWEST POSITION, SIDE RAILS ARE UP, CALL LIGHT WITHIN EASY REACH, WILL CONTINUE TO MONITOR.
[2019-03-22] MEDS: INSULIN GLARGINE 100 UNITS/ML VIAL SQ SCH (22:00)
[2019-03-22] MEDS: ATORVASTATIN 40 MG TAB PO SCH (22:00)
[2019-03-23] VITALS (9 sets, daily range): BP systolic 140–157; BP diastolic 89–101
[2019-03-23] MEDS: MORPHINE SULFATE INJ 4 MG/ML INJ 1ML IV PRN ×2 (01:04→22:01)
[2019-03-23] MEDS: ONDANSETRON HCL INJ 2MG/ML 2ML 2 MG/ML VIAL IV PRN ×2 (01:06→22:01)
[2019-03-23] MEDS: PIPER-TAZ 3.375 GM 50 ML IV SCH ×5 (01:10→23:47)
[2019-03-23] MEDS: SODIUM CHLORIDE 0.9% 1000ML 1,000 ML IV SCH (02:36)
--- NOTE | 2019-03-23 06:50 | NUR ---
RECEIVED BEDSIDE SHIFT REPORT FROM OFF GOING NURSE. PATIENT IS RESTING IN BED. NO S/S OF DISTRESS NOTED. CALL LIGHT WITHIN REACH. BED IN THE LOWEST POSITION.
[2019-03-23] MEDS: INSULIN REGULAR, HUMAN 100 UNIT/1 ML 3ML VIAL SQ SCH ×4 (07:30→20:45)
[2019-03-23] MEDS: COLLAGENASE OINTMENT 30 GM TUBE TP SCH ×2 (08:26→16:22)
[2019-03-23] MEDS: LOSARTAN POTASSIUM 25 MG TAB PO SCH (08:31)
[2019-03-23] MEDS: INSULIN LISPRO 100 UNIT/1 ML 3ML VIAL SQ SCH ×4 (08:45→20:34)
[2019-03-23] MEDS: VANCOMYCIN 300 ML IV SCH ×2 (09:15→20:33)
--- NOTE | 2019-03-23 13:40 | NUR ---
DR. MARTINEZ IN TO SEE PATIENT, WOUND DRESSING CHANGED BY .
[2019-03-23] MEDS: ENOXAPARIN SOD INJ 40 MG/0.4 ML SYR SC SCH (17:06)
--- NOTE | 2019-03-23 17:34 | Progress Note ---
DATE: 03/23/2019 SUBJECTIVE: The patient is seen at bedside, doing better. Decreased discomfort. Denies any history of fever, chills, nausea, or vomiting. OBJECTIVE: VITAL SIGNS: Afebrile, pulse 82, respirations 18, blood pressure 154/97, O2 saturation 96%. LABORATORY DATA: Labs noted. His white blood cell count . Ulceration to the left lower extremity inspected. Some granulation tissue noted. There is minimal to no foul smell, some necrosis noted down to bone. The 2nd metatarsal and 1st metatarsal heads are exposed with flexor tendon exposed approximately 2 to 3 cm in depth, more than 5 to 6 cm in diameter. ASSESSMENT: Grade 4 ulcer with osteomyelitis, responding to local wound care. PLAN: Dressing was changed. Santyl followed by diluted wet-to-dry Betadine was applied to the ulceration site. We will continue change dressing. Continue IV antibiotics. Continue offloading. YADIEL Steele/ADITHYA /[id number]
--- NOTE | 2019-03-23 19:00 | NUR ---
Bed side shift report taken from morning Dennis in the bed.stable condition.
--- NOTE | 2019-03-23 19:03 | NUR ---
Bedside shift report given to oncoming nurse. Patient is resting in bed. No acute distress noted. Call light within reach. Bed in the lowest position.
[2019-03-23] MEDS: ATORVASTATIN 40 MG TAB PO SCH (20:33)
[2019-03-23] MEDS: INSULIN GLARGINE 100 UNITS/ML VIAL SQ SCH (20:35)
--- NOTE | 2019-03-23 23:48 | NUR ---
Medicated with morphine 4mg iv.left foot is elevated and offloaded.bed locked and in lowest position.phone and call light within reach.instructed to call for assistance as needed.
[2019-03-24] VITALS (8 sets, daily range): BP systolic 114–161; BP diastolic 82–99
[2019-03-24] MEDS: PIPER-TAZ 3.375 GM 50 ML IV SCH ×3 (06:14→17:45)
[2019-03-24 06:19] LABS: HEMATOCRIT 36.7 % (38.2-49.6); HEMOGLOBIN 12.4 g/dL (14.0-18.0); MEAN CORPUSCULAR HEMOGLOBIN 27.8 pg (28-32); MEAN CORPUSCULAR HGB CONC 33.8 g/dL (31-35); MEAN CORPUSCULAR VOLUME 82.3 fL (81-99); PLATELET COUNT 422 x10e3/uL (140-360); RED BLOOD COUNT 4.46 x10e6/uL (4.3-5.7); RED CELL DISTRIBUTION WIDTH 12.2 % (11.7-14.4)
--- NOTE | 2019-03-24 07:07 | NUR ---
Bed side shift report given to the oncoming Rn.stable condition.
[2019-03-24] MEDS: INSULIN REGULAR, HUMAN 100 UNIT/1 ML 3ML VIAL SQ SCH ×4 (07:30→21:00)
[2019-03-24] MEDS: INSULIN LISPRO 100 UNIT/1 ML 3ML VIAL SQ SCH ×4 (07:30→21:04)
[2019-03-24 07:39] LABS: EOSINOPHILS % (MANUAL) 4 % (0-7); LYMPHOCYTES % (MANUAL) 18 % (19-48); MONOCYTES % (MANUAL) 4 % (3.4-9.0); NEUTROPHILS % (MANUAL) 74 % (40-74)
[2019-03-24 07:40] LABS: HYPOCHROMASIA SLIGHT; PLATELET ESTIMATE ADEQUATE; RBC MORPHOLOGY COMMENT NORMAL
[2019-03-24] MEDS: COLLAGENASE OINTMENT 30 GM TUBE TP SCH ×2 (09:00→17:00)
[2019-03-24] MEDS: LOSARTAN POTASSIUM 25 MG TAB PO SCH (09:00)
[2019-03-24] MEDS: VANCOMYCIN 300 ML IV SCH ×2 (09:00→21:02)
--- NOTE | 2019-03-24 14:47 | Progress Note ---
DATE: 03/24/2019 SUBJECTIVE: The patient is seen at bedside, doing better. He is denying any history of fever, chills, nausea, or vomiting. OBJECTIVE: VITAL SIGNS: Afebrile, pulse rate 82, respirations 20, blood pressure of 114/91, and O2 saturation 96%. EXTREMITIES: Dressing shows some bloody strikethrough. Decreased to minimal foul smell present. Still cellulitis and edema in left lower extremity compared to the right. LABORATORY DATA: Labs noted. White blood cell count has now dropped to 9.4, hemoglobin 12.4 with a platelet count of 422. ASSESSMENT: Osteomyelitis, grade 4 ulcer with cellulitis, diabetic neuropathy. PLAN: We will continue IV antibiotics such as vancomycin and Zosyn. Continue local wound care. Dressing will be changed tomorrow. Continue offloading. The patient understands that the patient may need further debridement and possible partial amputation if not responsive. YADIEL Steele/ADITHYA /[id number]
--- NOTE | 2019-03-24 15:45 | NUR ---
Visit made by the Spiritual Care Department Pastoral Visitor, Dez Black. PV provided pastoral presence, hospitality, and supportive listening. Pastoral Visitor informed pt/family of the scope of Pug Machine Operator Services and availability. CLINTON PARADA Theatre Manager Spiritual Care Department O: [phone] Pager: [phone] ([phone] number calling from)
--- NOTE | 2019-03-24 16:06 | NUR ---
Patient alert and responsive, no resp distress, tolerating all abx with no reaction, no c/o pains, dressing in place to left foot, rounds by Dr. Maqruez for wound care, OOB and uses scooter for mobility, no resp distress, no fever, will monitor.
[2019-03-24] MEDS: ENOXAPARIN SOD INJ 40 MG/0.4 ML SYR SC SCH (17:00)
[2019-03-24] MEDS: MORPHINE SULFATE INJ 4 MG/ML INJ 1ML IV PRN ×2 (18:18→23:54)
[2019-03-24] MEDS: ONDANSETRON HCL INJ 2MG/ML 2ML 2 MG/ML VIAL IV PRN ×2 (18:18→23:54)
--- NOTE | 2019-03-24 19:05 | NUR ---
Bed side shift report taken from morning Rn.stable condition.
--- NOTE | 2019-03-24 20:48 | NUR ---
Blood adán and sent to the lab for vanco trough.
[2019-03-24] MEDS: ATORVASTATIN 40 MG TAB PO SCH (21:02)
[2019-03-24] MEDS: INSULIN GLARGINE 100 UNITS/ML VIAL SQ SCH (21:04)
[2019-03-25] VITALS (8 sets, daily range): BP systolic 118–158; BP diastolic 80–94
[2019-03-25] MEDS: PIPER-TAZ 3.375 GM 50 ML IV SCH ×4 (00:01→18:28)
[2019-03-25] MEDS: MORPHINE SULFATE INJ 4 MG/ML INJ 1ML IV PRN (05:10)
[2019-03-25] MEDS: ONDANSETRON HCL INJ 2MG/ML 2ML 2 MG/ML VIAL IV PRN (05:10)
--- NOTE | 2019-03-25 06:55 | NUR ---
Bed side shift report given to the oncoming rn.stable condition.
--- NOTE | 2019-03-25 06:56 | NUR ---
walking rounds completed with manufacturing supervisor 2nd shift rn; pt in stable condition, will continue to monitor.
[2019-03-25] MEDS: INSULIN REGULAR, HUMAN 100 UNIT/1 ML 3ML VIAL SQ SCH ×4 (07:30→21:33)
--- NOTE | 2019-03-25 08:56 | NUR ---
dressing change completed at bedside with Dr. Marquez and Dr. Schmidt; pt tolerated well.
[2019-03-25] MEDS: COLLAGENASE OINTMENT 30 GM TUBE TP SCH ×2 (09:38→16:46)
[2019-03-25] MEDS: INSULIN LISPRO 100 UNIT/1 ML 3ML VIAL SQ SCH ×4 (09:40→21:32)
[2019-03-25] MEDS: VANCOMYCIN 300 ML IV SCH ×2 (09:47→21:20)
[2019-03-25] MEDS: LOSARTAN POTASSIUM 25 MG TAB PO SCH (09:55)
--- NOTE | 2019-03-25 12:30 | Progress Note ---
DATE: 03/25/2019 SUBJECTIVE: The patient is seen at bedside, accompanied by Dr. Childress. Doing well. Denies any history of fever, chills, nausea, or vomiting. Still has some edema and redness to the left lower extremity when compared to the right. OBJECTIVE: VITAL SIGNS: Afebrile, pulse rate 81, respiration 18, blood pressure 145/94, and O2 saturation 98%. EXTREMITIES: Ulceration down to bone 2nd metatarsal and 1st metatarsal exposed with flexor tendon exposed 1 to 2 to 3 cm in depth. Some necrosis noted, but negative foul smell. Some granulation tissue starting to appear. Still edema left lower extremity compared to right with pedal pulses palpable. ASSESSMENT: Grade 4 ulcer, osteomyelitis with cellulitis. PLAN: We will need IV antibiotics. Continue local wound care. Dressing was changed with Santyl, followed by diluted wet-to-dry Betadine and Dakin solution. We will continue to treat conservatively. Prognosis guarded at this time. YADIEL Steele/ASHLEYL /[id number]
--- NOTE | 2019-03-25 13:36 | NUR ---
ORDER RECEIVED FOR HOME IV ABX. MET W THE PT AT THE BEDSIDE. PT WAS PROVIDED CHOICE. STATES HE HAS USED [facility] IN THE PAST. CHOICE LETTER WAS SIGNED. COPY TO PT AND COPY TO THE CHART. REFERRAL WAS FAXED TO [facility] @ OFF: [phone] / [phone]
--- NOTE | 2019-03-25 14:35 | NUR ---
CALL RECEIVED FROM ILDEFONSO RIOJAS. STATES THE PT'S COPAY IS $133.60/DAY. STATES SHE WILL CALL THE PT TO DISCUSS. WILL F/U IN AM.
--- NOTE | 2019-03-25 16:21 | NUR ---
Nutrition Screen Note RD Recommendation for Physician: - Continue current diet Plan of Care: RD following, monitoring for tolerance and adequacy Nutrition reason for involvement: LOS Primary Diagnose(s): diabetic foot infection PMH: DM, obesity, diabetic neuropathy, HTN, HLD Ht: 77 in Wt: 347.5 lb BMI: 41.2 kg/m2 IBW: [address] Assessment: (03/25) 38 YOM admitted for diabetic foot wound with infection, s/p debridement today and possible partial amputation pending resolution of infection. Pt seen today for LOS. Pt reports good appetite and po intake. Pt reports UBW of 338 lb, no wt loss noted. Pt receptive to follow up diet education at time of visit, all questions and concerns addressed. Chart reviewed. Labs and meds reviewed. Will monitor and continue to follow. Current Diet: 1800 ADA Malnutrition Evaluation (03/25) The patient does not meet criteria for a specified degree of malnutrition at this time. Will re-evaluate at follow-up as appropriate. Diet Education Needs Assessment: Diet education indicated, pt receptive to f/u educ. Pt educated on 03/20 per DM educ consult as well. Learner(s): pt Barriers: none Cultural/Language Modifications: none Readiness: ready Method: handouts, discussion Topics: DM2 nutrition therapy, label reading Understanding/Compliance: good Diet tolerance: tolerating po Nutrition Care Level: low Signed: Cordelia King RD, LD, [facility]
[2019-03-25] MEDS: ENOXAPARIN SOD INJ 40 MG/0.4 ML SYR SC SCH (18:28)
--- NOTE | 2019-03-25 19:15 | NUR ---
Received patient awake in bed, call light within easy reach, assistive device at bedside with patient. No complaints of pain at this time. Will continue to monitor
[2019-03-25] MEDS: ATORVASTATIN 40 MG TAB PO SCH (21:20)
[2019-03-25] MEDS: INSULIN GLARGINE 100 UNITS/ML VIAL SQ SCH (21:33)
[2019-03-26] VITALS (9 sets, daily range): BP systolic 131–144; BP diastolic 86–95
[2019-03-26] MEDS: PIPER-TAZ 3.375 GM 50 ML IV SCH ×5 (00:12→23:31)
--- NOTE | 2019-03-26 06:34 | NUR ---
walking rounds done with RN, call light within easy reach
--- NOTE | 2019-03-26 06:49 | NUR ---
received am report and rounds done. pt is alert resting in bed, no s/s of distress. call light within reach and instructed pt to call nurse for help. family is at the bedside
[2019-03-26] MEDS: INSULIN REGULAR, HUMAN 100 UNIT/1 ML 3ML VIAL SQ SCH ×4 (07:30→21:00)
[2019-03-26] MEDS: INSULIN LISPRO 100 UNIT/1 ML 3ML VIAL SQ SCH ×4 (07:30→20:50)
--- NOTE | 2019-03-26 08:30 | NUR ---
collected blood from right picc line for vanc trough and sent to lab
[2019-03-26] MEDS: LOSARTAN POTASSIUM 25 MG TAB PO SCH (08:33)
--- NOTE | 2019-03-26 09:22 | NUR ---
NOTIFIED HOLLY CARCAMO OF VANCO TROUGH 12.7, NO CHANGES OR ORDERS
[2019-03-26] MEDS: VANCOMYCIN 300 ML IV SCH ×2 (09:30→20:50)
[2019-03-26] MEDS ORDERED: SODIUM CHLORIDE 0.9% 250ML 250 ML ONE (09:58)
[2019-03-26] MEDS: COLLAGENASE OINTMENT 30 GM TUBE TP SCH ×2 (10:30→18:31)
--- NOTE | 2019-03-26 11:01 | NUR ---
WOUND CARE DONE ORDERED.
--- NOTE | 2019-03-26 12:23 | Progress Note ---
DATE: 03/26/2019 SUBJECTIVE: The patient is seen at bedside, doing better. Decreased swelling to the left lower extremity. Denies any history of fever, chills, nausea, or vomiting. OBJECTIVE: VITAL SIGNS: Afebrile, pulse rate 76, respirations 18, blood pressure 135/86, and O2 saturation 97%. EXTREMITIES: Decreased edema and cellulitis of the left lower extremity. Still some swelling compared to contralateral side. Some drainage present. Negative foul smell. Ulceration down to bone more than 5 to 6 cm in diameter with tendon exposed and some necrosis still present with some granulation tissue starting to appear with decreased periwound cellulitis to the ulceration. LABORATORY DATA: Labs noted. ASSESSMENT: Grade 4 ulcer osteo, diabetic neuropathy with cellulitis. PLAN: Continue IV antibiotics. Continue local wound care. Continue offloading. We will continue to follow. The patient will stay in the hospital to at least Monday. YADIEL Steele/ADITHYA /[id number]
--- NOTE | 2019-03-26 14:10 | NUR ---
Dr. Lenz made beside rounds. patient told Dr. lenz that he cannot afford the Invanz IVABX. Dr. Lenz stated that he is waiting for the susceptibility report so he can make another recommendation.
--- NOTE | 2019-03-26 15:04 | Progress Note ---
DATE: SUBJECTIVE: Mr. Hensley lying in bed comfortably. There are no complaints. The patient is concerned he could not afford antibiotic. The patient is currently lying in bed comfortably. PHYSICAL EXAMINATION: GENERAL: He is currently alert and oriented. Does not seem to be in acute distress. VITAL SIGNS: Stable, currently afebrile. HEENT: He is not icteric. NECK: Supple. CHEST: Clear. HEART: S1 and S2. No S3, S4, or murmur. ABDOMEN: Soft. Bowel sounds present. No tenderness. EXTREMITIES: No edema. He has some drainage on the dressing. There is still some drainage from the wound. LABORATORY DATA: His cultures from March 18 showed Proteus mirabilis and Staphylococcus aureus burden and from March 20 showed gram-negative rods and Streptococcus. IMPRESSION: 1. Osteomyelitis of the 2nd metatarsal and proximal phalanx. 2. Obesity. 3. Diabetes mellitus with neuropathy. We will await the final result of cultures tomorrow before making recommendations on antibiotic. We will follow with you. MD DAVI Mills/ADITHYA /[id number]
[2019-03-26] MEDS: ENOXAPARIN SOD INJ 40 MG/0.4 ML SYR SC SCH (18:31)
[2019-03-26] MEDS: ATORVASTATIN 40 MG TAB PO SCH (20:50)
[2019-03-26] MEDS: INSULIN GLARGINE 100 UNITS/ML VIAL SQ SCH (20:50)
--- NOTE | 2019-03-26 20:50 | NUR ---
PATIENT IS AOX4, NO SIGNS OF DISTRESS NOTED. PATIENT VOICES NO PAIN AT THIS TIME AND IV ANTIBIOTICS ARE RUNNING AT ORDERED RATE. WOUND DRESSING IS DRY AND INTACT NO DRAINAGE NOTED. BED IS IN LOWEST POSITION, SIDE RAILS ARE UP, CALL LIGHT WITHIN EASY REACH, WILL CONTINUE TO MONITOR.
[2019-03-27] VITALS (7 sets, daily range): BP systolic 133–166; BP diastolic 88–94
[2019-03-27] MEDS: PIPER-TAZ 3.375 GM 50 ML IV SCH ×3 (05:49→17:56)
--- NOTE | 2019-03-27 07:00 | NUR ---
RECEIVED AM REPORT AND ROUNDS DONE. PT IS ALERT RESTING IN BED, NO S/S OF DISTRESS. CALL LIGHT WITHIN REACH AND INSTRUCTED PT TO CALL NURSE FOR HELP. SCOOTER IS WITHIN REACH
[2019-03-27] MEDS: INSULIN REGULAR, HUMAN 100 UNIT/1 ML 3ML VIAL SQ SCH ×4 (07:30→20:15)
[2019-03-27] MEDS: LOSARTAN POTASSIUM 25 MG TAB PO SCH (08:05)
[2019-03-27] MEDS: INSULIN LISPRO 100 UNIT/1 ML 3ML VIAL SQ SCH ×4 (08:15→20:15)
--- NOTE | 2019-03-27 08:30 | NUR ---
DR. MARTINEZ IS AT THE BEDSIDE AND PERFORMED WOUND CARE Addendum: 03/27/19 at 1045 by Leesa Patel RN Amended: Links added.
[2019-03-27] MEDS: VANCOMYCIN 300 ML IV SCH (09:00)
[2019-03-27] MEDS: COLLAGENASE OINTMENT 30 GM TUBE TP SCH ×2 (09:00→17:54)
--- NOTE | 2019-03-27 14:29 | NUR ---
MET W THE PT AT THE BEDSIDE. STATES THE COPAY IS STILL >$900, BECAUSE HIS INSURANCE STATES HE HAS NOT MET HIS DEDUCTIBLE YET. STATES HE NEEDS SOMEONE TO SPEAK W ALLY REGARDING HIS STAY AND OOP COSTS. CM CALL BUSINESS OFFICE. SPOKE W [place] @ [phone]. STATES SHE CAN UPDATE PT'S ACCOUNT IF ALLY WOULD CALL HER TO VERIFY. MET W THE PT TO GET THE # OF PERSON HE SPOKE WITH. STATES HE CALL MEMBER SERVICES AND DID NOT GET A NAME OR #. FAXED THE AUTH# REQUESTING A CALL BACK FROM REGARDING THIS ISSUE. WILL AWAIT CALL BACK.
--- NOTE | 2019-03-27 15:35 | Consultation ---
DATE OF CONSULTATION: 03/27/2019 SUBJECTIVE: The patient is doing better. Denies any history of fever, chills, nausea, or vomiting. Decreased swelling to the left lower extremity. OBJECTIVE: VITAL SIGNS: Afebrile, pulse rate 81, respirations 18, blood pressure 133/90, O2 saturation 98%. EXTREMITIES: Pedal pulses palpable. Has a grade 4 ulcer with bone exposed more than 6 to 7 cm in diameter. Minimal foul smell, some drainage present with some necrosis down to tendon and bone. Granulating and slowly. ASSESSMENT: Grade 4 ulcer osteomyelitis with cellulitis, diabetic neuropathy and edema. PLAN: We will continue IV antibiotics. Continue local wound care. Continue offloading. We will continue to monitor patient, so far responding to conservative care. May need further surgical intervention if not responsive. YADIEL Steele/ADITHYA /[id number]
--- NOTE | 2019-03-27 16:38 | NUR ---
RECEIVED CALL FROM RULA CANALES; . EXPLAINED PT UNABLE TO AFFORD COSTS OF HOME IV ABX. DISCUSSED PT NEEDING OOP DEDUCTIBLE MET. STATES HE WAS NOT ABLE TO SPEAK W THE BUSINESS OFFICE TO VERIFY IF DEDUCTIBLE WAS MET. STATES HE WILL ESCALATE TO HIS DIRECTOR AND WILL F/U Vidhya SOLOMON IN THE AM. Addendum: 03/28/19 at 1059 by Alisa Velazquez CM CONTACT INFO: RULA CAREY RN OFF: [phone] / FAX: [phone]
[2019-03-27] MEDS ORDERED: ONDANSETRON HCL 4 MG ORAL DISINTEGRATING TAB PO PRN (17:00)
[2019-03-27] MEDS: ENOXAPARIN SOD INJ 40 MG/0.4 ML SYR SC SCH (17:54)
--- NOTE | 2019-03-27 20:10 | NUR ---
PATIENT IS AOX4, NO SIGNS OF DISTRESS NOTED. PATIENT VOICES NO PAIN AT THIS TIME AND IV ANTIBIOTICS ARE RUNNING AT ORDERED RATE. FAMILY MEMBERS AT BEDSIDE AND WOUND DRESSING IS DRY AND INTACT NO DRAINAGE NOTED. BED IS IN LOWEST POSITION, SIDE RAILS ARE UP, CALL LIGHT WITHIN EASY REACH, WILL CONTINUE TO MONITOR.
[2019-03-27] MEDS: INSULIN GLARGINE 100 UNITS/ML VIAL SQ SCH (20:15)
[2019-03-27] MEDS: ATORVASTATIN 40 MG TAB PO SCH (20:15)
[2019-03-28] VITALS (8 sets, daily range): BP systolic 120–145; BP diastolic 70–87
[2019-03-28] MEDS: PIPER-TAZ 3.375 GM 50 ML IV SCH ×3 (00:14→12:00)
--- NOTE | 2019-03-28 07:17 | NUR ---
PAGED DR. CHEN REGARDING THE PATIENT'S PICC LINE NEEDING CATH FLOW, AWAITING CALL BACK.
[2019-03-28] MEDS: INSULIN REGULAR, HUMAN 100 UNIT/1 ML 3ML VIAL SQ SCH ×4 (07:30→21:00)
[2019-03-28] MEDS: COLLAGENASE OINTMENT 30 GM TUBE TP SCH ×2 (09:00→18:00)
[2019-03-28] MEDS: LOSARTAN POTASSIUM 25 MG TAB PO SCH (09:00)
--- NOTE | 2019-03-28 09:00 | NUR ---
Dr. Marquez is at the bedside performing wound care Addendum: 03/28/19 at 1027 by Leesa Patel RN Amended: Links added.
--- NOTE | 2019-03-28 09:15 | NUR ---
RECEIVED CALL FROM ILDEFONSO RIOJAS. MEDS ARE NOW $48.62/DAY = $340/WEEK. WILL F/U W THE PT.
[2019-03-28 09:36] LABS: BASOPHILS % 0.4 % (0.0-1.0); EOSINOPHILS # (AUTO) 0.2 (0.0-0.4); EOSINOPHILS % 2.2 % (0.0-6.0); HEMATOCRIT 40.3 % (38.2-49.6); HEMOGLOBIN 13.5 g/dL (14.0-18.0); MEAN CORPUSCULAR HEMOGLOBIN 27.6 pg (28-32); MEAN CORPUSCULAR HGB CONC 33.5 g/dL (31-35); MEAN CORPUSCULAR VOLUME 82.4 fL (81-99); MONOCYTES # (AUTO) 0.6 (0.2-0.8); MONOCYTES % 5.8 % (4.4-11.3); NEUTROPHILS % 71.1 % (38.7-80.0); PLATELET COUNT 495 x10e3/uL (140-360); RED BLOOD COUNT 4.89 x10e6/uL (4.3-5.7); RED CELL DISTRIBUTION WIDTH 12.5 % (11.7-14.4)
[2019-03-28] MEDS: INSULIN LISPRO 100 UNIT/1 ML 3ML VIAL SQ SCH ×4 (09:41→21:10)
[2019-03-28] MEDS ORDERED: ALTEPLASE RECOMBINANT 2 MG/2 ML VIAL IV ONE (10:00)
--- NOTE | 2019-03-28 13:26 | Progress Note ---
DATE: 03/28/2019 SUBJECTIVE: The patient is seen at bedside, doing better. Denies any history of fever, chills, nausea, or vomiting. Decreased swelling and redness to the left lower extremity. OBJECTIVE: VITAL SIGNS: Afebrile, pulse rate 88, respirations 18, blood pressure 132/87, and O2 saturation 98%. EXTREMITIES: Ulceration to the left lower extremity continues to improve. Some granulation tissue noted, still some bone and tendon exposed. Some necrosis noted down to bone, but negative foul smell, some drainage present with positive edema left lower extremity compared to the right and periwound cellulitis present. Ulcers more than 6 to 7 cm in diameter. ASSESSMENT: Osteomyelitis with a grade 4 ulcer, cellulitis, and diabetic neuropathy. PLAN: We will continue IV antibiotics. Continue local wound care. Dressing was changed. Santyl followed by diluted wet-to-dry and Dakin solution was applied. CBC with diff and sedimentation rate will be ordered. If he is doing well, tomorrow possibly discharge will be done. We will continue to treat conservatively. YADIEL Steele/ADITHYA /[id number]
[2019-03-28] MEDS: VANCOMYCIN 300 ML IV SCH (14:00)
--- NOTE | 2019-03-28 14:51 | NUR ---
PICC LINE DRESSING WAS CHANGED Addendum: 03/28/19 at 1451 by Leesa Patel RN Amended: Links added.
--- NOTE | 2019-03-28 14:55 | NUR ---
PICC LINE DRESSING WAS CHANGED Addendum: 03/28/19 at 1455 by Leesa Patel RN Amended: Links added.
[2019-03-28] MEDS: ENOXAPARIN SOD INJ 40 MG/0.4 ML SYR SC SCH (17:00)
--- NOTE | 2019-03-28 18:38 | NUR ---
WOUND CARE DONE
[2019-03-28] MEDS: INSULIN GLARGINE 100 UNITS/ML VIAL SQ SCH (21:10)
[2019-03-28] MEDS: ATORVASTATIN 40 MG TAB PO SCH (21:10)
--- NOTE | 2019-03-28 21:10 | NUR ---
PATIENT IS AOX4, NO SIGNS OF DISTRESS NOTED. PATIENT VOICES NO PAIN AT THIS TIME AND WOUND DRESSING IS DRY AND INTACT NO DRAINAGE NOTED. BED IS IN LOWEST POSITION, SIDE RAILS ARE UP, CALL LIGHT WITHIN EASY REACH, WILL CONTINUE TO MONITOR.
[2019-03-29] VITALS: BP 133/89
[2019-03-29] MEDS: VANCOMYCIN 300 ML IV SCH (00:35)
[2019-03-29 04:00] VITALS: BP 118/72
[2019-03-29] MEDS: INSULIN REGULAR, HUMAN 100 UNIT/1 ML 3ML VIAL SQ SCH (07:30)
[2019-03-29 08:03] VITALS: BP 128/81
[2019-03-29 08:04] VITALS: BP 128/81
[2019-03-29] MEDS: INSULIN LISPRO 100 UNIT/1 ML 3ML VIAL SQ SCH (08:47)
[2019-03-29] MEDS: COLLAGENASE OINTMENT 30 GM TUBE TP SCH (08:48)
[2019-03-29] MEDS: LOSARTAN POTASSIUM 25 MG TAB PO SCH (08:48)
[2019-03-29] MEDS ORDERED: PIPER-TAZ 3.375 GM 50 ML IV SCH (10:00)
[2019-03-29] MEDS ORDERED: TRESIBA100 UNIT/1 SQ (10:18)
[2019-03-29] MEDS ORDERED: LOSARTAN POTASS25 MG PO (10:19)
[2019-03-29] MEDS ORDERED: CRESTOR10 MG PO (10:19)
[2019-03-29] MEDS ORDERED: HUMALOG100 UNIT/1 SQ (10:20)
[2019-03-29] MEDS ORDERED: CIPRO500 MG PO (10:20)
--- NOTE | 2019-03-29 10:35 | NUR ---
Pt discharged home at this time. Pt was discharged home with home health for IV ABT therapy. Pt verbalized understanding of all discharge instructions and follow up appts. Pt was discharged with all personal belongings.
--- NOTE | 2019-03-29 16:35 | Progress Note ---
DATE: 03/29/2019 SUBJECTIVE: The patient is seen at bedside, doing significantly better. Decreased discomfort. Decreased swelling. Denies any history of fever, chills, nausea, or vomiting. OBJECTIVE: VITAL SIGNS: Afebrile, pulse rate 84, respirations 18, blood pressure 128/81, and O2 saturation 98%. EXTREMITIES: Ulceration continues to improve. Some granulation tissue noted. Decreased necrosis, but still down to bone and tendon. Some edema noted to the left lower extremity compared to the right with positive cellulitis. ASSESSMENT: Grade 4 ulcer osteomyelitis with diabetic neuropathy. PLAN: Dressing was changed. Santyl followed by diluted wet-to-dry. Dakin solution was applied to the affected ulcer site. Okay to be discharged. The patient will follow up next Monday in the office. Continue antibiotics as per Dr. Brown. YADIEL Steele/ADITHYA /[id number]
--- NOTE | 2019-03-30 03:14 | Discharge Summary ---
HOSPITAL COURSE: A 38-year-old male patient, admitted with diabetic foot ulcer involving the left foot. The patient underwent debridement. MRI positive for osteomyelitis, early. Wound culture was growing Proteus and MRSA. The patient was treated with vancomycin and Zosyn. He had debridement by myself and by Dr. Marquez. The patient's blood sugar was uncontrolled. A1c was 10.6. The patient will be discharged home with home IV antibiotics. MRA showed early osteomyelitis involving the left second metatarsal and proximal phalanx. DISCHARGE MEDICATIONS: The patient is discharged with Tresiba 40 units subcutaneous at bedtime, Humalog 18 units with each meal, losartan 25 mg daily, and rosuvastatin 20 mg daily. FOLLOWUP: Follow up in office and with Dr. Marquez and Dr. Brown. DISCHARGE DIAGNOSES: Diabetic foot ulcer, Ramirez grade 4, uncontrolled diabetes, diabetic neuropathy, and obesity. MD ANAIS Constantino/MODL /[id number]
== END 2019-03-29 10:35 | disposition home health service (06) | DRG 623 ==
LOC: ER 10:15 → ERHOLD 10:47 → MED/SURG3 15:22
PROVIDERS: ADMIT Internal Medicine; ATTEND Internal Medicine
PROC: 0KBW0ZZ Excision of Left Foot Muscle, Open Approach (ICD-10-PCS; 2019-03-18)
PROC: 02HV33Z Insertion of Infusion Device into Superior Vena Cava, Percutaneous Approach (ICD-10-PCS; principal; 2019-03-19)
PROC: B548ZZA Ultrasonography of Superior Vena Cava, Guidance (ICD-10-PCS; 2019-03-19)
PROC: 0QBP0ZZ Excision of Left Metatarsal, Open Approach (ICD-10-PCS; 2019-03-20)
DX: E11.69 Type 2 diabetes mellitus with other specified complication (principal); M86.172 Other acute osteomyelitis, left ankle and foot; L97.424 Non-pressure chronic ulcer of left heel and midfoot with necrosis of bone; Z68.41 Body mass index [BMI] 40.0-44.9, adult; L03.116 Cellulitis of left lower limb; L02.612 Cutaneous abscess of left foot; E11.621 Type 2 diabetes mellitus with foot ulcer; Z79.4 Long term (current) use of insulin; E66.01 Morbid (severe) obesity due to excess calories; E11.40 Type 2 diabetes mellitus with diabetic neuropathy, unspecified; Z83.3 Family history of diabetes mellitus; Z82.49 Family history of ischemic heart disease and other diseases of the circulatory system; I10 Essential (primary) hypertension; E78.5 Hyperlipidemia, unspecified; Z91.030 Bee allergy status; B96.4 Proteus (mirabilis) (morganii) as the cause of diseases classified elsewhere; B95.61 Methicillin susceptible Staphylococcus aureus infection as the cause of diseases classified elsewhere; B95.4 Other streptococcus as the cause of diseases classified elsewhere; D72.829 Elevated white blood cell count, unspecified; R53.81 Other malaise; E11.65 Type 2 diabetes mellitus with hyperglycemia
CPT/HCPCS: 36415; 36569; 71045; 80053; 80202; 81001; 82550; 82553; 82948; 83036; 83605; 83690; 83735; 84100; 84484; 85007; 85025; 85027; 85610; 85651; 85730; 86140; 87040; 87071; 87075; 87086; 87186; 87205; 90714; 93005; 93925; 96360; 96372; 99284; J0696; J0720; J1100; J1650; J1815; J1817; J2001; J2250; J2270; J2405; J2543; J2997; J3010; J3370; J7030; J7050

== ENCOUNTER 2022-02-08 09:54 | Inpatient (IN) | payer OTHER ==
[~2022-02-08] VITALS: Ht 195.6 cm; Wt 157.4 kg
[~2022-02-08 09:54] MED LIST changes: +CIPRO500 MG PO; +CRESTOR10 MG PO; +HUMALOG100 UNIT/1 SQ; +HUMALOG100 UNIT/3 SQ; +LEVEMIR100 UNIT/1 SQ; +LOSARTAN POTASS25 MG PO; +TRESIBA100 UNIT/1 SQ
[2022-02-08 10:28] LABS: BASOPHILS % 0.4 % (0.0-1.0); EOSINOPHILS # (AUTO) 0.2 (0.0-0.4); EOSINOPHILS % 2.2 % (0.0-6.0); HEMATOCRIT 42.2 % (38.2-49.6); HEMOGLOBIN 13.5 g/dL (14.0-18.0); LYMPHOCYTES % 13.4 % (18.0-39.1); MEAN CORPUSCULAR HEMOGLOBIN 27.4 pg (28-32); MEAN CORPUSCULAR VOLUME 85.6 fL (81-99); MONOCYTES # (AUTO) 0.7 (0.2-0.8); MONOCYTES % 8.6 % (4.4-11.3); NEUTROPHILS # (AUTO) 5.7 (2.1-6.9); NEUTROPHILS % 74.9 % (38.7-80.0); PLATELET COUNT 406 x10e3/uL (140-360); RED BLOOD COUNT 4.93 x10e6/uL (4.3-5.7); RED CELL DISTRIBUTION WIDTH 12.8 % (11.7-14.4)
[2022-02-08 10:38] LABS: INR 1.02; PROTHROMBIN TIME 14.3 seconds (11.9-14.5)
[2022-02-08 10:46] LABS: ALANINE AMINOTRANSFERASE 11 IU/L (0-55); ALBUMIN 3.3 g/dL (3.5-5.0); ALBUMIN/GLOBULIN RATIO 0.7 (0.8-2.0); ALKALINE PHOSPHATASE 97 IU/L (40-150); ANION GAP 17.1 mmol/L (8-16); BLOOD UREA NITROGEN 22 mg/dL (7-26); BUN/CREATININE RATIO 20 (6-25); CALCIUM 9.5 mg/dL (8.4-10.2); CARBON DIOXIDE 24 mmol/L (22-29); CHLORIDE 102 mmol/L (98-107); GLUCOSE 133 mg/dL (74-118); POTASSIUM 4.1 mmol/L (3.5-5.1); SODIUM 139 mmol/L (136-145)
[2022-02-08] MEDS: Vancomycin IV 1 GM in SODIUM CHLORIDE 0.9% 250ML 250 ML IV SCH ×2 (11:00→23:09)
[2022-02-08] MEDS ORDERED: DEXTROSE 50% SYRINGE 50 ML IV PRN (11:30)
[2022-02-08] MEDS: INSULIN ASPART 70/30 100 UNITS/ML VIAL SC SCH (18:00)
[2022-02-08] MEDS: METFORMIN HCL 500 MG TAB CR PO SCH (18:00)
[2022-02-08] MEDS ORDERED: METFORMIN HCL 500 MG TAB ONE (18:22)
[2022-02-08 22:14] VITALS: BP 131/86
[2022-02-08] MEDS ORDERED: HUMALOG MI100 UNIT/2 SQ ×2 (22:25)
[2022-02-08] MEDS ORDERED: SYNJARDY XR 251 EACH PO (22:25)
[2022-02-08] MEDS ORDERED: FLUCONAZOLE100 MG PO (22:25)
[2022-02-08] MEDS ORDERED: AUGMENTIN 500-1 EACH PO (22:25)
[2022-02-08] MEDS ORDERED: SODIUM CHLORIDE 0.9% 250ML 250 ML ONE (23:08)
[2022-02-09] VITALS (10 sets, daily range): BP systolic 125–137; BP diastolic 54–97
[2022-02-09 05:49] LABS: BASOPHILS % 0.5 % (0.0-1.0); EOSINOPHILS # (AUTO) 0.3 (0.0-0.4); EOSINOPHILS % 3.7 % (0.0-6.0); HEMATOCRIT 40.3 % (38.2-49.6); HEMOGLOBIN 12.9 g/dL (14.0-18.0); LYMPHOCYTES # (AUTO) 1.7 (1.0-3.2); LYMPHOCYTES % 23.8 % (18.0-39.1); MEAN CORPUSCULAR HEMOGLOBIN 27.5 pg (28-32); MEAN CORPUSCULAR VOLUME 85.9 fL (81-99); MONOCYTES # (AUTO) 0.8 (0.2-0.8); MONOCYTES % 10.7 % (4.4-11.3); NEUTROPHILS # (AUTO) 4.4 (2.1-6.9); NEUTROPHILS % 60.9 % (38.7-80.0); PLATELET COUNT 358 x10e3/uL (140-360); RED BLOOD COUNT 4.69 x10e6/uL (4.3-5.7); RED CELL DISTRIBUTION WIDTH 12.7 % (11.7-14.4)
[2022-02-09 06:12] LABS: ALBUMIN 2.9 g/dL (3.5-5.0); ALBUMIN/GLOBULIN RATIO 0.7 (0.8-2.0); ANION GAP 14.2 mmol/L (8-16); CREATININE, SERUM 1.31 mg/dL (0.72-1.25); POTASSIUM 4.2 mmol/L (3.5-5.1)
[2022-02-09] MEDS: LOSARTAN POTASSIUM 100 MG TAB PO SCH (09:12)
[2022-02-09] MEDS: METFORMIN HCL 500 MG TAB CR PO SCH ×2 (09:12→16:44)
[2022-02-09] MEDS: Vancomycin IV 1 GM in SODIUM CHLORIDE 0.9% 250ML 250 ML IV SCH ×2 (09:12→21:27)
[2022-02-09] MEDS: INSULIN ASPART 70/30 100 UNITS/ML VIAL SC SCH ×2 (09:53→16:29)
[2022-02-10] VITALS (8 sets, daily range): BP systolic 128–147; BP diastolic 83–97
[2022-02-10] MEDS: INSULIN ASPART 70/30 100 UNITS/ML VIAL SC SCH ×2 (08:00→16:31)
[2022-02-10] MEDS: Vancomycin IV 1 GM in SODIUM CHLORIDE 0.9% 250ML 250 ML IV SCH ×2 (09:08→21:40)
[2022-02-10] MEDS: LOSARTAN POTASSIUM 100 MG TAB PO SCH (09:08)
[2022-02-10] MEDS: METFORMIN HCL 500 MG TAB CR PO SCH ×2 (09:08→16:53)
[2022-02-11] VITALS (8 sets, daily range): BP systolic 120–141; BP diastolic 84–96
[2022-02-11] MEDS ORDERED: BETAMETHASONE DISODIUM PHOS 6 MG/ML VIAL IM ONE (07:00)
[2022-02-11] MEDS ORDERED: BUPIVACAINE HCL 0.25% 10ML MPF VIAL INJ ONE (07:00)
[2022-02-11] MEDS ORDERED: LIDOCAINE HCL 1% 2 ML AMP INJ ONE (07:00)
[2022-02-11] MEDS: Vancomycin IV 1 GM in SODIUM CHLORIDE 0.9% 250ML 250 ML IV SCH ×2 (10:09→22:41)
[2022-02-11] MEDS: METFORMIN HCL 500 MG TAB CR PO SCH ×2 (10:10→17:00)
[2022-02-11] MEDS: LOSARTAN POTASSIUM 100 MG TAB PO SCH (10:11)
[2022-02-11] MEDS: INSULIN ASPART 70/30 100 UNITS/ML VIAL SC SCH ×2 (10:13→17:49)
[2022-02-12] VITALS (8 sets, daily range): BP systolic 131–149; BP diastolic 81–91
[2022-02-12 07:12] LABS: BASOPHILS # (AUTO) 0.1 (0.0-0.1); BASOPHILS % 0.6 % (0.0-1.0); EOSINOPHILS # (AUTO) 0.3 (0.0-0.4); EOSINOPHILS % 3.8 % (0.0-6.0); HEMATOCRIT 40.5 % (38.2-49.6); LYMPHOCYTES # (AUTO) 2.3 (1.0-3.2); LYMPHOCYTES % 28.4 % (18.0-39.1); MEAN CORPUSCULAR HEMOGLOBIN 27.4 pg (28-32); MEAN CORPUSCULAR HGB CONC 32.1 g/dL (31-35); MEAN CORPUSCULAR VOLUME 85.3 fL (81-99); MONOCYTES # (AUTO) 0.6 (0.2-0.8); MONOCYTES % 7.8 % (4.4-11.3); NEUTROPHILS # (AUTO) 4.8 (2.1-6.9); NEUTROPHILS % 58.9 % (38.7-80.0); PLATELET COUNT 368 x10e3/uL (140-360); RED BLOOD COUNT 4.75 x10e6/uL (4.3-5.7); RED CELL DISTRIBUTION WIDTH 12.3 % (11.7-14.4)
[2022-02-12] MEDS: LOSARTAN POTASSIUM 100 MG TAB PO SCH (09:28)
[2022-02-12] MEDS: METFORMIN HCL 500 MG TAB CR PO SCH ×2 (09:28→17:00)
[2022-02-12] MEDS: Vancomycin IV 1 GM in SODIUM CHLORIDE 0.9% 250ML 250 ML IV SCH ×2 (09:29→21:31)
[2022-02-12] MEDS: INSULIN ASPART 70/30 100 UNITS/ML VIAL SC SCH ×2 (09:30→17:54)
[2022-02-13] VITALS (8 sets, daily range): BP systolic 124–154; BP diastolic 82–99
[2022-02-13] MEDS: METFORMIN HCL 500 MG TAB CR PO SCH (09:11)
[2022-02-13] MEDS: LOSARTAN POTASSIUM 100 MG TAB PO SCH (09:12)
[2022-02-13] MEDS: INSULIN ASPART 70/30 100 UNITS/ML VIAL SC SCH ×2 (09:13→17:00)
[2022-02-13] MEDS: Vancomycin IV 1 GM in SODIUM CHLORIDE 0.9% 250ML 250 ML IV SCH ×2 (09:13→22:06)
[2022-02-13] MEDS: COLLAGENASE OINTMENT 30 GM TUBE TOP SCH (14:30)
[2022-02-13] MEDS ORDERED: SODIUM CHLORIDE 0.9% 500ML 500 ML ONE (21:51)
[2022-02-14] VITALS (8 sets, daily range): BP systolic 120–144; BP diastolic 73–96
[2022-02-14 06:34] LABS: ANION GAP 13.1 mmol/L (8-16); CALCIUM 8.7 mg/dL (8.4-10.2); CREATININE, SERUM 1.23 mg/dL (0.72-1.25); POTASSIUM 4.1 mmol/L (3.5-5.1)
[2022-02-14] MEDS: LOSARTAN POTASSIUM 100 MG TAB PO SCH (09:17)
[2022-02-14] MEDS: METFORMIN HCL 500 MG TAB CR PO SCH (09:17)
[2022-02-14] MEDS: COLLAGENASE OINTMENT 30 GM TUBE TOP SCH (09:21)
[2022-02-14] MEDS: INSULIN ASPART 70/30 100 UNITS/ML VIAL SC SCH ×2 (09:27→16:47)
[2022-02-14] MEDS: Vancomycin IV 1 GM in SODIUM CHLORIDE 0.9% 250ML 250 ML IV SCH ×2 (10:26→20:46)
[2022-02-15 01:13] VITALS: BP 136/91
[2022-02-15 05:40] VITALS: BP 127/77
[2022-02-15] MEDS: INSULIN ASPART 70/30 100 UNITS/ML VIAL SC SCH ×2 (08:00→10:55)
[2022-02-15 08:10] VITALS: BP 138/101
[2022-02-15 08:46] VITALS: BP 138/101
[2022-02-15] MEDS: LOSARTAN POTASSIUM 100 MG TAB PO SCH (10:05)
[2022-02-15] MEDS: Vancomycin IV 1 GM in SODIUM CHLORIDE 0.9% 250ML 250 ML IV SCH (10:05)
[2022-02-15] MEDS: METFORMIN HCL 500 MG TAB CR PO SCH (10:05)
[2022-02-15] MEDS: COLLAGENASE OINTMENT 30 GM TUBE TOP SCH (10:06)
[2022-02-15 11:17] VITALS: BP 143/91
[2022-02-15 16:05] VITALS: BP 147/101
== END 2022-02-15 17:39 | disposition home or self-care (01) | DRG 623 ==
LOC: ER 09:58 → ERHOLD 12:09 → MED/SURG3 22:06
PROVIDERS: ADMIT Internal Medicine; ATTEND Internal Medicine
PROC: 02HV33Z Insertion of Infusion Device into Superior Vena Cava, Percutaneous Approach (ICD-10-PCS; 2022-02-10)
PROC: 0KBW0ZZ Excision of Left Foot Muscle, Open Approach (ICD-10-PCS; principal; 2022-02-11)
PROC: 0KBW0ZZ Excision of Left Foot Muscle, Open Approach (ICD-10-PCS; 2022-02-13)
DX: E11.621 Type 2 diabetes mellitus with foot ulcer (principal); A52.16 Charcot's arthropathy (tabetic); L03.116 Cellulitis of left lower limb; L97.424 Non-pressure chronic ulcer of left heel and midfoot with necrosis of bone; M86.8X7 Other osteomyelitis, ankle and foot; Z68.41 Body mass index [BMI] 40.0-44.9, adult; E11.42 Type 2 diabetes mellitus with diabetic polyneuropathy; E11.69 Type 2 diabetes mellitus with other specified complication; B95.62 Methicillin resistant Staphylococcus aureus infection as the cause of diseases classified elsewhere; E66.01 Morbid (severe) obesity due to excess calories; Z91.030 Bee allergy status; Z91.199 Patient's noncompliance with other medical treatment and regimen due to unspecified reason; Z83.3 Family history of diabetes mellitus; Z20.822 Contact with and (suspected) exposure to COVID-19; Z79.4 Long term (current) use of insulin
CPT/HCPCS: 0223U; 36415; 36569; 71045; 80048; 80053; 80202; 82948; 85025; 85610; 85651; 85730; 87040; 87071; 87075; 87186; 87205; 99251; 99284; J0720; J1815; J2001; J2543; J3370; J7040; J7050

== ENCOUNTER 2023-02-16 19:33 | Inpatient (IN) | payer BC, OTHER ==
[~2023-02-16] VITALS: Ht 195.6 cm; Wt 157.4 kg
[~2023-02-16 19:33] MED LIST changes: +AUGMENTIN 500-1 EACH PO; +FLUCONAZOLE100 MG PO; +HUMALOG MI100 UNIT/2 SQ; +SYNJARDY XR 251 EACH PO
[2023-02-16] MEDS ORDERED: ONDANSETRON HCL INJ 2MG/ML 2ML 2 MG/ML VIAL IV PRN (19:45)
[2023-02-16] MEDS ORDERED: Morphine 4mg INJECTION 4 MG/ML INJ IV PRN (19:45)
[2023-02-16 20:11] LABS: BASOPHILS % 0.3 % (0.0-1.0); EOSINOPHILS # (AUTO) 0.2 (0.0-0.4); EOSINOPHILS % 2.1 % (0.0-6.0); HEMATOCRIT 35.9 % (38.2-49.6); HEMOGLOBIN 12.2 g/dL (14.0-18.0); LYMPHOCYTES # (AUTO) 1.3 (1.0-3.2); LYMPHOCYTES % 12.5 % (18.0-39.1); MEAN CORPUSCULAR HEMOGLOBIN 27.1 pg (28-32); MEAN CORPUSCULAR VOLUME 79.6 fL (81-99); MONOCYTES % 9.7 % (4.4-11.3); NEUTROPHILS # (AUTO) 7.9 (2.1-6.9); NEUTROPHILS % 74.9 % (38.7-80.0); PLATELET COUNT 358 x10e3/uL (140-360); RED BLOOD COUNT 4.51 x10e6/uL (4.3-5.7); RED CELL DISTRIBUTION WIDTH 12.9 % (11.7-14.4); WHITE BLOOD COUNT 10.55 x10e3/uL (4.8-10.8)
[2023-02-16 20:30] LABS: ALBUMIN 3.3 g/dL (3.5-5.0); ALBUMIN/GLOBULIN RATIO 0.7 (0.8-2.0); ANION GAP 14.3 mmol/L (8-16); CALCIUM 9.3 mg/dL (8.4-10.2); CREATININE, SERUM 1.3 mg/dL (0.72-1.25); POTASSIUM 4.3 mmol/L (3.5-5.1)
[2023-02-16] MEDS: SODIUM CHLORIDE 0.9% 1000ML 1,000 ML IV SCH (20:43)
[2023-02-16 23:03] VITALS: BP 146/88; PULSE 110; RESP 18; TEMP 98.7; O2SAT 100
[2023-02-17] MEDS: SODIUM CHLORIDE 0.9% 1000ML 1,000 ML IV SCH (02:59)
[2023-02-17 05:26] LABS: BASOPHILS % 0.3 % (0.0-1.0); EOSINOPHILS # (AUTO) 0.2 (0.0-0.4); EOSINOPHILS % 2.3 % (0.0-6.0); HEMATOCRIT 34.1 % (38.2-49.6); HEMOGLOBIN 11.7 g/dL (14.0-18.0); LYMPHOCYTES # (AUTO) 0.8 (1.0-3.2); LYMPHOCYTES % 11.2 % (18.0-39.1); MEAN CORPUSCULAR HEMOGLOBIN 27.3 pg (28-32); MEAN CORPUSCULAR HGB CONC 34.3 g/dL (31-35); MEAN CORPUSCULAR VOLUME 79.7 fL (81-99); MONOCYTES # (AUTO) 0.8 (0.2-0.8); MONOCYTES % 12.2 % (4.4-11.3); NEUTROPHILS # (AUTO) 5.1 (2.1-6.9); NEUTROPHILS % 73.6 % (38.7-80.0); PLATELET COUNT 320 x10e3/uL (140-360); RED BLOOD COUNT 4.28 x10e6/uL (4.3-5.7); RED CELL DISTRIBUTION WIDTH 12.9 % (11.7-14.4); WHITE BLOOD COUNT 6.89 x10e3/uL (4.8-10.8)
[2023-02-17 05:59] LABS: ALBUMIN 2.9 g/dL (3.5-5.0); ALBUMIN/GLOBULIN RATIO 0.7 (0.8-2.0); ANION GAP 15.3 mmol/L (8-16); CALCIUM 8.9 mg/dL (8.4-10.2); CREATININE, SERUM 1.09 mg/dL (0.72-1.25); POTASSIUM 4.3 mmol/L (3.5-5.1)
[2023-02-17 09:25] VITALS: BP 146/88; PULSE 110; RESP 18; TEMP 98.7; O2SAT 100
[2023-02-17] MEDS ORDERED: DEXTROSE 50% SYRINGE 50 ML IV PRN (10:00)
[2023-02-17] MEDS ORDERED: METOPROLOL TARTRATE 25 MG TAB PO SCH (10:30)
[2023-02-17] MEDS: INSULIN LISPRO 100 UNIT/1 ML 3ML VIAL SQ SCH ×3 (11:30→21:00)
[2023-02-17 11:45] VITALS: BP 159/106; PULSE 89; RESP 20; O2SAT 99
[2023-02-17] MEDS: GABAPENTIN 100 MG CAP PO SCH ×3 (11:49→21:40)
[2023-02-17] MEDS: Vancomycin IV 1 GM in SODIUM CHLORIDE 0.9% 250ML 250 ML IV SCH ×2 (11:50→22:23)
[2023-02-17 17:30] VITALS: BP 154/94; PULSE 84; RESP 20; TEMP 98.2; O2SAT 98
[2023-02-17 20:00] VITALS: BP 149/86; PULSE 82; RESP 18; TEMP 98.3; O2SAT 100
[2023-02-17 20:06] VITALS: BP 154/94; PULSE 84; RESP 20; TEMP 98.2; O2SAT 98
[2023-02-17] MEDS: METOPROLOL TARTRATE 25 MG TAB PO SCH (21:41)
[2023-02-17] MEDS ORDERED: SODIUM CHLORIDE 0.9% 250ML 250 ML ONE (22:17)
[2023-02-18] VITALS (8 sets, daily range): BP systolic 117–142; BP diastolic 60–96; PULSE 63–81; RESP 18–20; TEMP 97.5–98.4; O2SAT 93–100
[2023-02-18] MEDS: INSULIN LISPRO 100 UNIT/1 ML 3ML VIAL SQ SCH ×4 (07:30→21:12)
[2023-02-18] MEDS: METOPROLOL TARTRATE 25 MG TAB PO SCH ×2 (09:01→21:05)
[2023-02-18] MEDS: GABAPENTIN 100 MG CAP PO SCH ×3 (09:11→21:05)
[2023-02-18] MEDS: Vancomycin IV 1 GM in SODIUM CHLORIDE 0.9% 250ML 250 ML IV SCH ×2 (10:47→21:10)
[2023-02-18] MEDS ORDERED: ONDANSETRON HCL 4 MG ORAL DISINTEGRATING TAB PO PRN (13:30)
[2023-02-19] VITALS (7 sets, daily range): BP systolic 109–144; BP diastolic 82–99; PULSE 67–82; RESP 16–20; TEMP 97.8–98.4; O2SAT 97–100
[2023-02-19] MEDS: INSULIN LISPRO 100 UNIT/1 ML 3ML VIAL SQ SCH ×5 (07:30→21:00)
[2023-02-19] MEDS: METOPROLOL TARTRATE 25 MG TAB PO SCH ×2 (08:34→20:42)
[2023-02-19] MEDS: GABAPENTIN 100 MG CAP PO SCH ×3 (08:35→20:42)
[2023-02-19] MEDS: Vancomycin IV 1 GM in SODIUM CHLORIDE 0.9% 250ML 250 ML IV SCH ×2 (09:40→22:24)
[2023-02-19] MEDS ORDERED: LIDOCAINE HCL 1% LOCAL INJ 20 ML VIAL INJ ONE (12:00)
[2023-02-19] MEDS ORDERED: BUPIVACAINE HCL 0.5% INJ 30 ML VIAL INJ ONE (12:00)
[2023-02-19] MEDS ORDERED: BETAMETHASONE DISODIUM PHOS 6 MG/ML VIAL IM ONE (12:00)
[2023-02-20] VITALS (8 sets, daily range): BP systolic 115–137; BP diastolic 79–96; PULSE 71–79; RESP 2–21; TEMP 97.9–98.3; O2SAT 98–100
[2023-02-20] MEDS: INSULIN LISPRO 100 UNIT/1 ML 3ML VIAL SQ SCH ×4 (07:30→21:30)
[2023-02-20] MEDS: METOPROLOL TARTRATE 25 MG TAB PO SCH ×2 (08:43→21:12)
[2023-02-20] MEDS: GABAPENTIN 100 MG CAP PO SCH ×3 (08:44→21:09)
[2023-02-20] MEDS: Vancomycin IV 1 GM in SODIUM CHLORIDE 0.9% 250ML 250 ML IV SCH ×2 (09:52→22:46)
[2023-02-20] MEDS: ENOXAPARIN SOD INJ 40 MG/0.4 ML SYR SC SCH (16:53)
[2023-02-21] VITALS (10 sets, daily range): BP systolic 117–128; BP diastolic 76–87; PULSE 68–81; RESP 17–20; TEMP 97.4–98.3; O2SAT 99–100
[2023-02-21 00:21] LABS: ANION GAP 13.9 mmol/L (8-16); CALCIUM 9.1 mg/dL (8.4-10.2); CREATININE, SERUM 1.14 mg/dL (0.72-1.25); POTASSIUM 3.9 mmol/L (3.5-5.1)
[2023-02-21 06:24] LABS: BASOPHILS % 0.5 % (0.0-1.0); EOSINOPHILS # (AUTO) 0.4 (0.0-0.4); HEMATOCRIT 35.5 % (38.2-49.6); HEMOGLOBIN 12.2 g/dL (14.0-18.0); LYMPHOCYTES # (AUTO) 1.8 (1.0-3.2); LYMPHOCYTES % 24.4 % (18.0-39.1); MEAN CORPUSCULAR HEMOGLOBIN 27.2 pg (28-32); MEAN CORPUSCULAR HGB CONC 34.4 g/dL (31-35); MEAN CORPUSCULAR VOLUME 79.1 fL (81-99); MONOCYTES # (AUTO) 0.6 (0.2-0.8); MONOCYTES % 7.6 % (4.4-11.3); NEUTROPHILS # (AUTO) 4.5 (2.1-6.9); NEUTROPHILS % 62.1 % (38.7-80.0); PLATELET COUNT 311 x10e3/uL (140-360); RED BLOOD COUNT 4.49 x10e6/uL (4.3-5.7); RED CELL DISTRIBUTION WIDTH 12.5 % (11.7-14.4); WHITE BLOOD COUNT 7.33 x10e3/uL (4.8-10.8)
[2023-02-21] MEDS: INSULIN LISPRO 100 UNIT/1 ML 3ML VIAL SQ SCH ×4 (07:30→20:59)
[2023-02-21] MEDS: GABAPENTIN 100 MG CAP PO SCH ×3 (08:06→20:50)
[2023-02-21] MEDS: METOPROLOL TARTRATE 25 MG TAB PO SCH ×2 (08:07→20:59)
[2023-02-21] MEDS ORDERED: SODIUM CHLORIDE 0.9% 250ML 250 ML ONE (10:17)
[2023-02-21] MEDS: Vancomycin IV 1 GM in SODIUM CHLORIDE 0.9% 250ML 250 ML IV SCH (10:25)
[2023-02-21] MEDS: ENOXAPARIN SOD INJ 40 MG/0.4 ML SYR SC SCH (17:12)
[2023-02-21] MEDS: VANCOMYCIN 1.5 GM/300 ML 300 ML IV SCH (20:51)
[2023-02-22] VITALS (7 sets, daily range): BP systolic 114–130; BP diastolic 66–93; PULSE 61–80; RESP 17–20; TEMP 97.7–98.9; O2SAT 98–100
[2023-02-22] MEDS: INSULIN LISPRO 100 UNIT/1 ML 3ML VIAL SQ SCH ×4 (07:30→20:47)
[2023-02-22] MEDS: METOPROLOL TARTRATE 25 MG TAB PO SCH ×2 (09:45→20:46)
[2023-02-22] MEDS: GABAPENTIN 100 MG CAP PO SCH ×3 (09:45→20:46)
[2023-02-22] MEDS: VANCOMYCIN 1.5 GM/300 ML 300 ML IV SCH ×2 (09:46→20:46)
[2023-02-22] MEDS: ENOXAPARIN SOD INJ 40 MG/0.4 ML SYR SC SCH (17:14)
[2023-02-23] VITALS (7 sets, daily range): BP systolic 115–139; BP diastolic 76–89; PULSE 68–79; RESP 17–20; TEMP 97.5–98.4; O2SAT 98–100
[2023-02-23] MEDS: INSULIN LISPRO 100 UNIT/1 ML 3ML VIAL SQ SCH ×4 (07:30→21:27)
[2023-02-23] MEDS: VANCOMYCIN 1.5 GM/300 ML 300 ML IV SCH ×2 (09:00→21:31)
[2023-02-23] MEDS: METOPROLOL TARTRATE 25 MG TAB PO SCH ×2 (09:01→21:32)
[2023-02-23] MEDS: GABAPENTIN 100 MG CAP PO SCH ×3 (09:02→21:31)
[2023-02-23] MEDS: ENOXAPARIN SOD INJ 40 MG/0.4 ML SYR SC SCH (16:19)
[2023-02-24] VITALS (8 sets, daily range): BP systolic 124–152; BP diastolic 84–95; PULSE 68–95; RESP 18–22; TEMP 97.3–98.5; O2SAT 99–100
[2023-02-24] MEDS: INSULIN LISPRO 100 UNIT/1 ML 3ML VIAL SQ SCH ×4 (09:27→21:36)
[2023-02-24] MEDS: VANCOMYCIN 1.5 GM/300 ML 300 ML IV SCH (09:29)
[2023-02-24] MEDS: METOPROLOL TARTRATE 25 MG TAB PO SCH ×2 (09:29→21:33)
[2023-02-24] MEDS: GABAPENTIN 100 MG CAP PO SCH ×3 (09:29→21:32)
[2023-02-24] MEDS: DAPTOMYCIN 500mg 10ML 1,000 MG in SODIUM CHLORIDE 0.9% 100 ML IV SCH (15:14)
[2023-02-24] MEDS: ENOXAPARIN SOD INJ 40 MG/0.4 ML SYR SC SCH (17:42)
[2023-02-25] VITALS (7 sets, daily range): BP systolic 128–143; BP diastolic 56–99; PULSE 70–84; RESP 14–20; TEMP 97.5–98.6; O2SAT 97–100
[2023-02-25] MEDS: GABAPENTIN 100 MG CAP PO SCH ×3 (09:09→20:47)
[2023-02-25] MEDS: INSULIN LISPRO 100 UNIT/1 ML 3ML VIAL SQ SCH ×4 (09:09→20:50)
[2023-02-25] MEDS: METOPROLOL TARTRATE 25 MG TAB PO SCH ×2 (09:10→20:47)
[2023-02-25] MEDS: DAPTOMYCIN 500mg 10ML 1,000 MG in SODIUM CHLORIDE 0.9% 100 ML IV SCH (16:12)
[2023-02-25] MEDS: ENOXAPARIN SOD INJ 40 MG/0.4 ML SYR SC SCH (16:50)
[2023-02-26] VITALS (8 sets, daily range): BP systolic 108–158; BP diastolic 65–91; PULSE 75–90; RESP 15–20; TEMP 97.8–98.6; O2SAT 97–100
[2023-02-26] MEDS: INSULIN LISPRO 100 UNIT/1 ML 3ML VIAL SQ SCH ×4 (08:30→21:47)
[2023-02-26] MEDS: METOPROLOL TARTRATE 25 MG TAB PO SCH ×2 (08:32→21:38)
[2023-02-26] MEDS: GABAPENTIN 100 MG CAP PO SCH ×3 (08:32→21:38)
[2023-02-26] MEDS: DAPTOMYCIN 500mg 10ML 1,000 MG in SODIUM CHLORIDE 0.9% 100 ML IV SCH (15:52)
[2023-02-26] MEDS: ENOXAPARIN SOD INJ 40 MG/0.4 ML SYR SC SCH (17:42)
[2023-02-27] VITALS: BP 108/65; PULSE 75; RESP 20; TEMP 97.8
[2023-02-27 04:20] VITALS: BP 109/69; PULSE 73; RESP 20; TEMP 97.6; O2SAT 98
[2023-02-27] MEDS: INSULIN LISPRO 100 UNIT/1 ML 3ML VIAL SQ SCH ×2 (07:30→12:56)
[2023-02-27] MEDS: METOPROLOL TARTRATE 25 MG TAB PO SCH (09:08)
[2023-02-27] MEDS: GABAPENTIN 100 MG CAP PO SCH ×2 (09:08→14:23)
[2023-02-27 09:33] VITALS: BP 134/95; PULSE 70; RESP 18; TEMP 97.8; O2SAT 100
[2023-02-27 10:00] VITALS: BP 134/95; PULSE 70; RESP 18; TEMP 97.8; O2SAT 100
[2023-02-27 13:40] VITALS: BP 130/97; PULSE 67; RESP 18; TEMP 97.6; O2SAT 99
[2023-02-27] MEDS: DAPTOMYCIN 500mg 10ML 1,000 MG in SODIUM CHLORIDE 0.9% 100 ML IV SCH (14:24)
== END 2023-02-27 16:52 | disposition home or self-care (01) | DRG 504 ==
LOC: ER 19:38 → ERHOLD 21:09 → ICU 22:51 → MED/SURG3 02-17 18:44
PROVIDERS: ADMIT Internal Medicine; ATTEND Internal Medicine
PROC: 3E04329 Introduction of Other Anti-infective into Central Vein, Percutaneous Approach (ICD-10-PCS; 2023-02-16)
PROC: 02HV33Z Insertion of Infusion Device into Superior Vena Cava, Percutaneous Approach (ICD-10-PCS; principal; 2023-02-18)
PROC: B548ZZA Ultrasonography of Superior Vena Cava, Guidance (ICD-10-PCS; 2023-02-18)
PROC: 0SBN0ZZ Excision of Left Metatarsal-Phalangeal Joint, Open Approach (ICD-10-PCS; 2023-02-26)
DX: M86.8X7 Other osteomyelitis, ankle and foot (principal); L03.116 Cellulitis of left lower limb; L97.426 Non-pressure chronic ulcer of left heel and midfoot with bone involvement without evidence of necrosis; Z68.41 Body mass index [BMI] 40.0-44.9, adult; E11.69 Type 2 diabetes mellitus with other specified complication; E11.621 Type 2 diabetes mellitus with foot ulcer; E11.42 Type 2 diabetes mellitus with diabetic polyneuropathy; S92.312A Displaced fracture of first metatarsal bone, left foot, initial encounter for closed fracture; B95.62 Methicillin resistant Staphylococcus aureus infection as the cause of diseases classified elsewhere; R53.81 Other malaise; E66.01 Morbid (severe) obesity due to excess calories; Z20.822 Contact with and (suspected) exposure to COVID-19; Z79.4 Long term (current) use of insulin
CPT/HCPCS: 36415; 36569; 71045; 80048; 80053; 80202; 82948; 83036; 83605; 85025; 87040; 87071; 87186; 87205; 93005; 96372; 99252; 99284; J1650; J2001; J2270; J2405; J2543; J7030; J7050; U0002